=== PATIENT | male | born 1930 | race Caucasian/White ===

== ENCOUNTER 2016-09-22 09:54 | Day surgery (SDC) | payer MEDICARE ==
[2016-09-22] MEDS ORDERED: LIDOCAINE 2% MDV (20MG/ML) 20ML VIAL IV ONE (14:00)
[2016-09-22] MEDS ORDERED: PROPOFOL 10 MG/ML VIAL IV ONE (14:00)
--- NOTE | 2016-09-26 16:02 | Operative Note ---
DATE OF SURGERY: 09/22/2016. REFERRING PHYSICIAN: Julio Cesar Camacho M.D. PROCEDURE: Colonoscopy to the cecum and terminal ileum with multiple biopsies. INDICATION: A history of Crohn's ileitis. The patient returns at this time for surveillance. Clinically he is doing fairly well with Pentasa only. ANESTHESIA: Intravenous sedation was administered by the Department of Anesthesiology and included Diprivan titrated to effect. PROCEDURE: Following informed consent from this alert individual, including a discussion of the risks and benefits of the procedure and an opportunity for the patient to ask questions, the patient was in the left lateral decubitus position. A digital rectal examination was performed. There was mild stenosis noted. No masses were palpable. Following this, the Olympus PCF-180 video colonoscope was inserted into the rectum without resistance. The rectal mucosa had a normal appearance with normal folds and distensibility. The colonoscope was advanced up through the bowel to the level of the cecum without much difficulty. Throughout the bowel, the mucosa appeared normal, folds were normal , and the bowel was fairly distensible. The colon preparation was good. The cecum was defined by noting the appendiceal orifice and ileocecal valve. The terminal ileum was then cannulated and demonstrated inflammatory changes with edema, erythema, and superficial erosions but no stricturing. Biopsies were taken from the terminal ileum. The ileum was cannulated for approximately 15 cm. From this point the colonoscope was then withdrawn back into the colon. Withdrawal through the colon failed to demonstrate any mucosal changes. There was sigmoid diverticulosis noted. No other pathology was appreciated. Retroflexion in the rectum failed to demonstrate any changes. The endoscope was straightened and withdrawn. The patient tolerated the procedure well and was returned to the recovery area in stable condition. IMPRESSION: 1. Mild inflammatory change in the ileum compatible with mild Crohn's ileitis. There was no stricturing noted. There were erosions and edema with erythema. 2. Sigmoid diverticulosis. RECOMMENDATIONS: The patient was advised to continue on his current medical regimen. Further recommendations may be forthcoming pending the results of the biopsies obtained today. Follow up also will be with Dr. Julio Cesar Camacho. ISHAN ORTA D.O. Date Time JOB NUMBER: [id number] cc: Simón Henao
== END 2016-09-22 12:08 | disposition home or self-care (01) ==
LOC: HOP 09:54
PROVIDERS: ATTEND Internal Medicine Gastroenterology
DX: Z09 Encounter for follow-up examination after completed treatment for conditions other than malignant neoplasm (principal); Z87.19 Personal history of other diseases of the digestive system; K50.10 Crohn's disease of large intestine without complications; K57.30 Diverticulosis of large intestine without perforation or abscess without bleeding

== ENCOUNTER 2016-11-23 09:53 | Inpatient (IN) | payer MEDICARE ==
[2016-11-23] MEDS ORDERED: PROMETHAZINE HCL 25 MG/ML VIAL IV ONE (10:58)
[2016-11-23] MEDS ORDERED: HYDROMORPHONE HCL 1 MG/ML CPJ IVP ONE (11:02)
[2016-11-23 11:14] LABS: BASO % 0.4 % (0-6); EOS % 2.3 % (0-6); GRAN % 68.4 % (47-80); HEMATOCRIT 35.7 % (42.0-52.0); HEMOGLOBIN 11.8 gm/dl (14.0-18.0); LYMPH % 18.2 % (16-45); MEAN CELL VOLUME 98.6 fl (81-97); MEAN CORPUSCULAR HGB CONC 33.1 g/dl (32-36); MEAN PLATELET VOLUME 10.7 fl (7.4-10.4); MONO % 10.7 % (0-9); PLATELET COUNT 180 K/uL (130-400); RED BLOOD COUNT 3.62 M/uL (4.40-5.70); RED CELL DISTRIBUTION WIDTH 13.6 % (11.5-14.5); WHITE BLOOD COUNT W/O DIFF 4.9 K/uL (4.2-12.2)
[2016-11-23 11:17] LABS: MEAN CORPUSCULAR HEMOGLOBIN 32.5 pg (27-33)
[2016-11-23 11:24] LABS: ANION GAP 9.9 (7-16); CARBON DIOXIDE 23.1 mmol/L (22-30); CREATININE 1.3 mg/dL (0.66-1.25)
[2016-11-23] MEDS ORDERED: CIPROFLOXACIN LACTATE/D5W 400 MG in DEXTROSE 1 BAG IVPB ONE (13:01)
[2016-11-23 13:31] LABS: URINE APPEARANCE CLEAR; URINE BILIRUBIN NEGATIVE (NEGATIVE); URINE BLOOD NEGATIVE (NEGATIVE); URINE COLOR YELLOW; URINE GLUCOSE (UA) NEGATIVE (NEGATIVE); URINE KETONE NEGATIVE (NEGATIVE); URINE LEUKOCYTE ESTERASE NEGATIVE (NEGATIVE); URINE NITRITE NEGATIVE (NEGATIVE); URINE PROTEIN NEGATIVE (NEGATIVE); URINE UROBILINOGEN 0.2 E.U./dL (0.20 - 1.00)
[2016-11-23] MEDS ORDERED: METRONIDAZOLE IVPB 500 MG in SODIUM CHLORIDE 1 BAG IVPB ONE (14:05)
--- NOTE | 2016-11-23 14:12 | Emergency Department Record ---
History of Present Illness - General Chief Complaint: Abdominal Pain Stated Complaint: ABD PAIN Time Seen by Provider: 11/23/16 10:43 Source: Patient Mode of Arrival: Ambulatory Limitations: No limitations - History of Present Illness Initial Comments: pt came in c/o of severe abd pain in lower abdomen he was worried it might be appendicitis. it is worse w walking. Complaint: Abdominal pain Onset/Timin -: Days(s) Location: RLQ Radiation: None Migration to: No migration Severity: Moderate Quality: Sharp Consistency: Constant Improves With: Nothing Worsens With: Nothing Associated Symptoms: Nausea, Vomiting - Related Data Home Medications Medication Instructions Recorded Confirmed Last Taken Albuterol Sulfate [Proair 90 mcg IH Q4H 11/23/16 11/23/16 Unknown Respiclick] Aspirin [Aspir-Low] 81 mg PO DAILY 11/23/16 11/23/16 11/23/16 Atorvastatin Calcium 40 mg PO QHS 11/23/16 11/23/16 11/22/16 Budesonide [Entocort EC] 30 mg PO DAILY 11/23/16 11/23/16 11/23/16 Bumetanide [Bumex] 1 mg PO DAILY 11/23/16 11/23/16 11/23/16 Cholecalciferol (Vitamin D3) 2,000 unit PO DAILY 11/23/16 11/23/16 11/23/16 [Vitamin D3] Clopidogrel Bisulfate [Plavix] 75 mg PO DAILY 11/23/16 11/23/16 11/23/16 Dextran 70/Hypromellose 1 each OP DAILY 11/23/16 11/23/16 11/23/16 [Artificial Tears] Ezetimibe [Zetia] 10 mg PO QHS 11/23/16 11/23/16 11/22/16 Ferrous Sulfate [Iron] 325 mg PO BID 11/23/16 11/23/16 11/23/16 Fluticasone Propionate [Flovent 50 mcg IH DAILY 11/23/16 11/23/16 11/23/16 Diskus] Glucosamine HCl 1,500 mg PO TID 11/23/16 11/23/16 11/23/16 Hydralazine HCl [Apresoline] 25 mg PO BID 11/23/16 11/23/16 11/23/16 Isosorbide Mononitrate [Imdur] 30 mg PO DAILY 11/23/16 11/23/16 11/23/16 L.acidoph & Paracasei,B.lactis 1 each PO DAILY 11/23/16 11/23/16 11/23/16 [Probiotic] Loperamide HCl [Immodium] 1 mg PO ASDIR 11/23/16 11/23/16 Unknown Mesalamine [Pentasa] 1,500 mg PO BID 11/23/16 11/23/16 11/23/16 Metoprolol Succinate 100 mg PO DAILY 11/23/16 11/23/16 11/23/16 Multivitamin [Daily Multiple 1 each PO DAILY 11/23/16 11/23/16 11/23/16 Vitamin] Nitroglycerin [Nitrostat] 0.4 mg SL ASDIR 11/23/16 11/23/16 Unknown Ranitidine HCl [Zantac] 150 mg PO DAILY 11/23/16 11/23/16 11/23/16 Tramadol HCl 100 mg PO TID 11/23/16 11/23/16 Unknown Umeclidinium Brm/Vilanterol Tr 1 each IH DAILY 11/23/16 11/23/16 11/23/16 [Anoro Ellipta 62.5-25 Mcg INH] Allergies Allergy/AdvReac Type Severity Reaction Status Date / Time morphine AdvReac Severe hallucinati Verified 11/23/16 14:42 ons Travel Screening - Travel/Exposure Within Last 30 Days Have you traveled within the last 30 days?: No Review of Systems Reviewed: No additional complaints except as noted below Constitutional: Reports: As per HPI. Denies: Chills, Fever, Malaise, Night sweats, Weakness, Weight change Eyes: Reports: As per HPI. Denies: Eye discharge, Eye pain, Photophobia, Vision change ENT: Reports: As per HPI. Denies: Congestion, Dental pain, Ear pain, Epistaxis , Hearing loss, Throat pain Respiratory: Reports: As per HPI. Denies: Cough, Dyspnea, Hemoptysis, Stridor, Wheezes Cardiovascular: Reports: As per HPI. Denies: Arrhythmia, Chest pain, Dyspnea on exertion, Edema, Murmurs, Orthopnea, Palpitations, Paroxysmal nocturnal dyspnea, Rheumatic Fever, Syncope Endocrine: Reports: As per HPI. Denies: Fatigue, Heat or cold intolerance, Polydipsia, Polyuria Gastrointestinal: Reports: As per HPI. Denies: Abdominal pain, Constipation, Diarrhea, Hematemesis, Hematochezia, Melena, Nausea, Vomiting Genitourinary: Reports: As per HPI. Denies: Dysuria, Frequency, Hematuria, Incontinence, Retention, Testicular pain, Testicular mass, Urgency Musculoskeletal: Reports: As per HPI. Denies: Arthralgia, Back pain, Gout, Joint swelling, Myalgia, Neck pain Skin: Reports: As per HPI. Denies: Bruising, Change in color, Change in hair/ nails, Lesions, Pruritus, Rash Neurological: Reports: As per HPI. Denies: Abnormal gait, Confusion, Headache, Numbness, Paresthesias, Seizure, Tingling, Tremors, Vertigo, Weakness Psychiatric: Reports: As per HPI. Denies: Anxiety, Auditory hallucinations, Depression, Homicidal thoughts, Suicidal thoughts, Visual hallucinations Hematological/Lymphatic: Reports: As per HPI. Denies: Anemia, Blood Clots, Easy bleeding, Easy bruising, Swollen glands Past Medical History - SOCIAL HISTORY Smoking Status: Former smoker Alcohol Use Comment: 2 glasses wine/night Drug Use: None - RESPIRATORY Hx Respiratory Disorders: Yes Hx COPD: Yes - CARDIOVASCULAR Hx Cardio Disorders: Yes Hx Cardiac Cath: Yes Hx Chest Pain: No Hx Heart Attack: Yes (x 3-last one 2010) Hx Hypertension: Yes Hx Palpitations: No Hx Vascular Disease: Yes Hx Coronary Artery Bypass Graft: Yes Hx Coronary Stent: Yes Comment:: d/t breathing - NEURO Hx Neuro Disorders: No - GI Hx GI Disorders: Yes Hx Crohn's Disease: Yes Hx Reflux: Yes Hx of Polyps: Yes Comment:: hernia - Hx Genitourinary Disorders: Yes Hx Prostate Problems: Yes (hx of prostate cancer) - ENDOCRINE Hx Endocrine Disorders: No - MUSCULOSKELETAL Hx Musculoskeletal Disorders: Yes Hx Arthritis: Yes - PSYCH Hx Psych Problems: No - HEMATOLOGY/ONCOLOGY Hx Hematology/Oncology Disorders: Yes Hx Anemia: Yes Hx Cancer: Yes (prostate cancer) Hx Chemotherapy: No Hx Radiation Therapy: No Hx Blood Transfusions: Yes Hx Blood Transfusion Reaction: No Family Medical History Any Significant Family History?: Yes Hx Heart Disease: Father Physical Exam - General General Appearance: Alert, Oriented x3, Cooperative, Mild distress - Head Head exam: Normal inspection - Eye Eye exam: Normal appearance, PERRL, EOMI Pupils: Normal accommodation - ENT ENT exam: Normal exam, Mucous membranes moist, Normal external ear exam, Normal orophraynx Ear exam: Normal external inspection. negative: External canal tenderness Nasal Exam: Normal inspection. negative: Discharge, Sinus tenderness Mouth exam: Normal external inspection, Tongue normal Teeth exam: Normal inspection. negative: Dental caries Throat exam: Normal inspection. negative: Tonsillar erythema, Tonsillar exudate - Neck Neck exam: Normal inspection, Full ROM. negative: Tenderness - Respiratory Respiratory exam: Normal lung sounds bilaterally. negative: Respiratory distress - Cardiovascular Cardiovascular Exam: Regular rate, Normal rhythm, Normal heart sounds - GI/Abdominal GI/Abdominal exam: Soft, Normal bowel sounds, Guarding, Tenderness (rlq and llq) - Rectal Rectal exam: Deferred - exam: Deferred - Extremities Extremities exam: Normal inspection, Full ROM, Normal capillary refill. negative: Tenderness - Back Back exam: Reports: Normal inspection, Full ROM. Denies: Muscle spasm, Rash noted, Tenderness - Neurological Neurological exam: Alert, CN II-XII intact, Normal gait, Oriented X3 - Psychiatric Psychiatric exam: Normal affect, Normal mood - Skin Skin exam: Dry, Intact, Normal color, Warm Course Vital Signs 11/23/16 11/23/16 11/23/16 10:37 11:09 11:10 Temperature 97.8 F Pulse Rate 68 Pulse Rate [ 69 58 L Pulse Ox Probe] Respiratory 18 Rate Blood Pressure 154/56 Blood Pressure 101/67 [Left Arm] Blood Pressure 140/80 [Right Arm] Pulse Ox 95 11/23/16 11/23/16 12:16 13:44 Temperature 97.9 F Pulse Rate Pulse Rate [ 52 L 54 L Pulse Ox Probe] Respiratory 18 18 Rate Blood Pressure Blood Pressure [Left Arm] Blood Pressure 131/49 160/62 [Right Arm] Pulse Ox 96 96 Medical Decision Making - Management Options MDM Management: Additional Work-up Planned (e.g. ADM/Transfer/OP Study) - Data Complexity MDM Data: Labs Ordered and/or Reviewed, X-Ray Ordered and/or Reviewed - Lab Data Result diagrams: 11/23/16 11:08 11/23/16 11:08 Lab Results 11/23/16 11/23/16 11/23/16 Range/Units 11:08 11:08 12:07 WBC 4.9 (4.2-12.2) K/uL RBC 3.62 L (4.40-5.70) M/uL Hgb 11.8 L (14.0-18.0) gm/dl Hct 35.7 L (42.0-52.0) % MCV 98.6 H (81-97) fl MCH 32.5 (27-33) pg MCHC 33.1 (32-36) g/dl RDW 13.6 (11.5-14.5) % Plt Count 180 (130-400) K/uL MPV 10.7 H (7.4-10.4) fl Gran % 68.4 (47-80) % Lymphocytes % 18.2 (16-45) % Monocytes % 10.7 H (0-9) % Eosinophils % 2.3 (0-6) % Basophils % 0.4 (0-6) % Sodium 138 (136-145) mmol/L Potassium 4.4 (3.5-5.1) mmol/L Chloride 105 (98-107) mmol/L Carbon Dioxide 23.1 (22-30) mmol/L Anion Gap 9.9 (7-16) BUN 21 H (9-20) mg/dL Creatinine 1.3 H (0.66-1.25) mg/dL Estimated GFR 56 ml/min Random Glucose 140 H (70-110) mg/dL Lactic Acid 1.1 (0.7-2.1) mmol/L Calcium 8.9 (8.5-10.1) mg/dL Urine Color Urine Appearance Urine pH (5.0-8.0) Ur Specific [place] (1.002-1.030) Urine Protein (NEGATIVE) Urine Glucose (UA) (NEGATIVE) Urine Ketones (NEGATIVE) Urine Blood (NEGATIVE) Urine Nitrite (NEGATIVE) Urine Bilirubin (NEGATIVE) Urine Urobilinogen (0.20 - 1.00) E.U./dL Ur Leukocyte Esterase (NEGATIVE) 11/23/16 Range/Units 13:00 WBC (4.2-12.2) K/uL RBC (4.40-5.70) M/uL Hgb (14.0-18.0) gm/dl Hct (42.0-52.0) % MCV (81-97) fl MCH (27-33) pg MCHC (32-36) g/dl RDW (11.5-14.5) % Plt Count (130-400) K/uL MPV (7.4-10.4) fl Gran % (47-80) % Lymphocytes % (16-45) % Monocytes % (0-9) % Eosinophils % (0-6) % Basophils % (0-6) % Sodium (136-145) mmol/L Potassium (3.5-5.1) mmol/L Chloride (98-107) mmol/L Carbon Dioxide (22-30) mmol/L Anion Gap (7-16) BUN (9-20) mg/dL Creatinine (0.66-1.25) mg/dL Estimated GFR ml/min Random Glucose (70-110) mg/dL Lactic Acid (0.7-2.1) mmol/L Calcium (8.5-10.1) mg/dL Urine Color Yellow Urine Appearance Clear Urine pH 5.5 (5.0-8.0) Ur Specific [place] 1.010 (1.002-1.030) Urine Protein Negative (NEGATIVE) Urine Glucose (UA) Negative (NEGATIVE) Urine Ketones Negative (NEGATIVE) Urine Blood Negative (NEGATIVE) Urine Nitrite Negative (NEGATIVE) Urine Bilirubin Negative (NEGATIVE) Urine Urobilinogen 0.2 (0.20 - 1.00) E.U./dL Ur Leukocyte Esterase Negative (NEGATIVE) - Radiology Data Radiology results: Report reviewed, Image reviewed Disposition Disposition: Admit Clinical Impression: Diverticulitis Qualifiers: Diverticulitis site: large intestine Diverticulitis bleeding: without bleeding Diverticulitis complication: without perforation or abscess Qualified Code(s): K57.32 - Diverticulitis of large intestine without perforation or abscess without bleeding Disposition: Still a Patient at [facility] Decision to Admit: Admit from ER Decision to Admit Date: 11/23/16 Decision to Admit Time: 14:30 Forms: Patient Portal Access
[2016-11-23] MEDS ORDERED: HYDROMORPHONE HCL 1 MG/ML CPJ IVP PRN (15:19)
[2016-11-23] MEDS ORDERED: ONDANSETRON HCL IV 4 MG/2 ML VIAL IVP PRN (15:19)
[2016-11-23] MEDS ORDERED: NITROGLYCERIN 0.4MG SL TABLET #25 BTL SL PRN (15:19)
[2016-11-23] MEDS ORDERED: ACETAMINOPHEN 500 MG TABLET PO PRN (15:19)
[2016-11-23] MEDS ORDERED: 0.9 % SODIUM CHLORIDE 1000ML 1,000 ML IV PRN (15:19)
[2016-11-23] MEDS ORDERED: ALBUTEROL SULFATE 90 MCG IH SCH (15:19)
[2016-11-23] MEDS: CIPROFLOXACIN LACTATE/D5W 400 MG in DEXTROSE 1 BAG IVPB SCH (15:25)
[2016-11-23] MEDS: METRONIDAZOLE IVPB 500 MG in SODIUM CHLORIDE 1 BAG IVPB SCH ×2 (15:25→23:30)
[2016-11-23] MEDS: TRAMADOL HCL 50 MG TABLET PO SCH (16:57)
[2016-11-23] MEDS ORDERED: Non-Formulary MISC (Atorvastatin Calcium [Atorvastatin Calcium] 40 MG) PO SCH (22:00)
[2016-11-23] MEDS ORDERED: MESALAMINE PO SCH (22:00)
[2016-11-23] MEDS ORDERED: EZETIMIBE 10 MG TABLET PO SCH (22:00)
[2016-11-23] MEDS: HYDRALAZINE HCL 25 MG TABLET PO SCH (22:13)
[2016-11-24] MEDS: TRAMADOL HCL 50 MG TABLET PO SCH (02:36)
[2016-11-24] MEDS: CIPROFLOXACIN LACTATE/D5W 400 MG in DEXTROSE 1 BAG IVPB SCH (02:38)
[2016-11-24] MEDS: METRONIDAZOLE IVPB 500 MG in SODIUM CHLORIDE 1 BAG IVPB SCH (06:43)
[2016-11-24 07:00] LABS: BASO % 0.2 % (0-6); EOS % 3.6 % (0-6); GRAN % 56.6 % (47-80); HEMATOCRIT 35.7 % (42.0-52.0); HEMOGLOBIN 11.5 gm/dl (14.0-18.0); LYMPH % 27.6 % (16-45); MEAN CELL VOLUME 99.2 fl (81-97); MEAN CORPUSCULAR HEMOGLOBIN 31.9 pg (27-33); MEAN CORPUSCULAR HGB CONC 32.2 g/dl (32-36); MEAN PLATELET VOLUME 11.1 fl (7.4-10.4); PLATELET COUNT 171 K/uL (130-400); RED CELL DISTRIBUTION WIDTH 13.7 % (11.5-14.5)
--- NOTE | 2016-11-24 08:04 | CT SCAN REPORT ---
EXAM: ABDOMEN AND PELVIS CT WITHOUT CONTRAST HISTORY: ACUTE RIGHT LOWER QUADRANT ABDOMINAL PAIN. TECHNIQUE: Abdomen and pelvis CT without contrast was obtained. Comparison: Abdomen and pelvis CT 09/13/12. FINDINGS: Prosthetic heart valves. Severe coronary artery calcification. The lung bases are clear. Evaluation of the solid abdominal visceral organs is compromised due to lack of IV contrast. The liver and spleen are unremarkable. 1 cm unilocular cyst mid right kidney. 1 cm unilocular cyst mid left kidney. The adrenals and pancreas are unremarkable. Tiny gallstones in the gallbladder which is nondistended. The visualized loops of small and large bowel are of normal caliber. Normal appendix. There is mild colonic diverticulosis. Inflamed diverticulum of tortuous sigmoid colon located in the right lower quadrant best seen on axial image 71 consistent with acute diverticulitis. No abscess or obstruction. Moderate to severe aortoiliac calcification. Abdominal aortic aneurysm excluded by bifurcated stent graft. The aneurysm sac measures up to 3.7 cm in diameter similar to prior study. No ascites or adenopathy. No lytic or blastic lesion. 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 IMPRESSION: 1. ACUTE SIGMOID COLON DIVERTICULITIS. NO ABSCESS OR OBSTRUCTION. 2. SEVERE CORONARY ARTERY CALCIFICATION. 3. BENIGN BOSNIAK TYPE 1 RENAL CYSTS. JOB NUMBER: [id number] [facility]
[2016-11-24] MEDS ORDERED: TRAMADOL HCL 50 MG TABLET PO PRN (09:46)
[2016-11-24] MEDS ORDERED: ALBUTEROL HFA 8 GM INHALER INH PRN (09:46)
[2016-11-24] MEDS ORDERED: RANITIDINE HCL 150 MG TABLET PO SCH (10:00)
[2016-11-24] MEDS ORDERED: FLUTICASONE PROPIONATE 50 MCG IH SCH (10:00)
[2016-11-24] MEDS ORDERED: CLOPIDOGREL 75MG TABLET PO SCH (10:00)
[2016-11-24] MEDS ORDERED: [UNRECOGNIZED DRUG - OTHER] IH SCH (10:00)
[2016-11-24] MEDS ORDERED: ISOSORBIDE MONONITRATE 30 MG TAB.ER.24H PO SCH (10:00)
[2016-11-24] MEDS ORDERED: BUMETANIDE 1 MG TABLET PO SCH (10:00)
[2016-11-24] MEDS ORDERED: ASPIRIN 81 MG TABEC PO SCH (10:00)
[2016-11-24] MEDS ORDERED: METOPROLOL SUCC 50 MG TABLET PO SCH (10:00)
[2016-11-24] MEDS ORDERED: BUDESONIDE PO SCH (10:00)
[2016-11-24] MEDS ORDERED: MESALAMINE 500 MG CAPSULE.SA PO SCH (10:00)
--- NOTE | 2016-11-24 10:59 | History & Physical ---
History of Present Illness - Date of Service Date of Service for History & Physical: 11/24/16 - History of Present Illness Admitting Diagnosis: diverticulitis History of Present Illness: 86 yo M presented to ED yesterday with c/o of severe abd pain in lower abdomen he was worried it might be appendicitis. it is worse with walking. These symptoms were different from his typical crohns symptoms which are controlled with mesalamine. SHe sees Dr. Gay for GI. Past medical : COPD, heart attack x 3, cardiac cath, CAD, Crohn's disease, GERD , prostate cacner, arthritis, anemia, former smoker (quit 2005) Past Surgical : aortic valve replacement, back surgery x 3, CAGB x 4, right shoulder, bilateral catarats, prostatectomy, PCP: Julio Cesar Rodriguez Travel Screening - Travel/Exposure Within Last 30 Days Have you traveled within the last 30 days?: No - Travel/Exposure Within Last Year Have you traveled outside the [place] in the last year?: No - Additonal Travel Details Have you been exposed to anyone with a communicable illness?: No Review of Systems Constitutional: Reports: As per HPI. Denies: Chills, Fever, Malaise, Night sweats, Weakness, Weight change Eyes: Reports: As per HPI. Denies: Eye discharge, Eye pain, Photophobia, Vision change ENT: Reports: As per HPI. Denies: Congestion, Dental pain, Ear pain, Epistaxis , Hearing loss, Throat pain Respiratory: Reports: As per HPI. Denies: Cough, Dyspnea, Hemoptysis, Stridor, Wheezes Cardiovascular: Reports: As per HPI. Denies: Arrhythmia, Chest pain, Dyspnea on exertion, Edema, Murmurs, Orthopnea, Palpitations, Paroxysmal nocturnal dyspnea, Rheumatic Fever, Syncope Endocrine: Reports: As per HPI. Denies: Fatigue, Heat or cold intolerance, Polydipsia, Polyuria Gastrointestinal: Reports: As per HPI. Denies: Abdominal pain, Constipation, Diarrhea, Hematemesis, Hematochezia, Melena, Nausea, Vomiting Genitourinary: Reports: As per HPI. Denies: Dysuria, Frequency, Hematuria, Incontinence, Retention, Testicular pain, Testicular mass, Urgency Musculoskeletal: Reports: As per HPI. Denies: Arthralgia, Back pain, Gout, Joint swelling, Myalgia, Neck pain Skin: Reports: As per HPI. Denies: Bruising, Change in color, Change in hair/ nails, Lesions, Pruritus, Rash Neurological: Reports: As per HPI. Denies: Abnormal gait, Confusion, Headache, Numbness, Paresthesias, Seizure, Tingling, Tremors, Vertigo, Weakness Psychiatric: Reports: As per HPI. Denies: Anxiety, Auditory hallucinations, Depression, Homicidal thoughts, Suicidal thoughts, Visual hallucinations Hematological/Lymphatic: Reports: As per HPI. Denies: Anemia, Blood Clots, Easy bleeding, Easy bruising, Swollen glands Past Medical History - SOCIAL HISTORY Smoking Status: Former smoker Alcohol Use Comment: 2 glasses wine/night Drug Use: None - RESPIRATORY Hx Respiratory Disorders: Yes Hx COPD: Yes - CARDIOVASCULAR Hx Cardio Disorders: Yes Hx Cardiac Cath: Yes Hx Heart Attack: Yes (x 3-last one 2010) Hx Hypertension: Yes Hx Vascular Disease: Yes Hx Coronary Artery Bypass Graft: Yes Hx Coronary Stent: Yes Comment:: d/t breathing - NEURO Hx Neuro Disorders: No - GI Hx GI Disorders: Yes Hx Crohn's Disease: Yes Hx Reflux: Yes Hx of Polyps: Yes Comment:: hernia - Hx Genitourinary Disorders: Yes Hx Prostate Problems: Yes (hx of prostate cancer) - ENDOCRINE Hx Endocrine Disorders: No - MUSCULOSKELETAL Hx Musculoskeletal Disorders: Yes Hx Arthritis: Yes (all over) - PSYCH Hx Psych Problems: No - HEMATOLOGY/ONCOLOGY Hx Hematology/Oncology Disorders: Yes Hx Anemia: Yes Hx Cancer: Yes (prostate cancer) Hx Chemotherapy: No Hx Radiation Therapy: No Hx Blood Transfusions: Yes (>10 years ago) Hx Blood Transfusion Reaction: No Family Medical History Any Significant Family History?: Yes Hx Cancer: Brother/Sister Hx Heart Disease: Father H&P Meds/Allergies - Allergies Allergies: Allergies Allergy/AdvReac Type Severity Reaction Status Date / Time morphine AdvReac Severe hallucinati Verified 11/23/16 14:42 ons - Home Medications Home Medications Medication Instructions Recorded Confirmed Last Taken Albuterol Sulfate [Proair 90 mcg IH Q4H PRN 11/23/16 11/23/16 Unknown Respiclick] Aspirin [Aspir-Low] 81 mg PO DAILY 11/23/16 11/23/16 11/23/16 Atorvastatin Calcium 40 mg PO QHS 11/23/16 11/23/16 11/22/16 Bumetanide [Bumex] 1 mg PO Q48H 11/23/16 11/24/16 11/23/16 Cholecalciferol (Vitamin D3) 2,000 unit PO DAILY 11/23/16 11/23/16 11/23/16 [Vitamin D3] Clopidogrel Bisulfate [Plavix] 75 mg PO DAILY 11/23/16 11/23/16 11/23/16 Dextran 70/Hypromellose 1 each OP DAILY 11/23/16 11/23/16 11/23/16 [Artificial Tears] Ezetimibe [Zetia] 10 mg PO QHS 11/23/16 11/23/16 11/22/16 Ferrous Sulfate [Iron] 325 mg PO BID 11/23/16 11/23/16 11/23/16 Glucosamine HCl 1,500 mg PO TID 11/23/16 11/23/16 11/23/16 Hydralazine HCl [Apresoline] 25 mg PO BID 11/23/16 11/23/16 11/23/16 Isosorbide Mononitrate [Imdur] 30 mg PO DAILY 11/23/16 11/23/16 11/23/16 L.acidoph & Paracasei,B.lactis 1 each PO DAILY 11/23/16 11/23/16 11/23/16 [Probiotic] Loperamide HCl [Immodium] 1 mg PO ASDIR 11/23/16 11/23/16 Unknown Mesalamine [Pentasa] 1,500 mg PO BID 11/23/16 11/23/16 11/23/16 Metoprolol Succinate 100 mg PO DAILY 11/23/16 11/23/16 11/23/16 Multivitamin [Daily Multiple 1 each PO DAILY 11/23/16 11/23/16 11/23/16 Vitamin] Nitroglycerin [Nitrostat] 0.4 mg SL Q5MIN PRN 11/23/16 11/24/16 Unknown Tramadol HCl 100 mg PO TID PRN 11/23/16 11/23/16 Unknown Umeclidinium Brm/Vilanterol Tr 1 each IH DAILY 11/23/16 11/23/16 11/23/16 [Anoro Ellipta 62.5-25 Mcg INH] - Active Medications Active Medications: Current Medications Acetaminophen (Tylenol 500mg Tab) 1,000 mg PO Q6H PRN PRN Reason: PAIN/TEMP Albuterol Sulfate (Ventolin Hfa) 2 puff INH Q4H PRN PRN Reason: SHORTNESS OF BREATH Aspirin (Ecotrin (Ec)) 81 mg PO DAILY [facility] Atorvastatin Calcium (Lipitor) 40 mg PO QHS [facility] Bumetanide (Bumex) 1 mg PO Q48H [facility] Clopidogrel Bisulfate (Plavix) 75 mg PO DAILY [facility] Ezetimibe (Zetia) 10 mg PO QHS [facility] Last Admin: 11/23/16 22:47 Dose: Not Given Hydralazine HCl (Apresoline) 25 mg PO BID [facility] Last Admin: 11/23/16 22:13 Dose: 25 mg Hydromorphone HCl (Dilaudid) 0.5 mg IVP Q4H PRN PRN Reason: Abdominal Pain Sodium Chloride () 1,000 mls @ 125 mls/hr IV .Q8H PRN PRN Reason: LARGE VOLUME IV Last Admin: 11/23/16 17:00 Dose: 125 mls/hr Ciprofloxacin Lactate 400 mg/ (Glucose) 200 mls @ 200 mls/hr IVPB Q12H [facility] Stop: 11/29/16 14:01 Metronidazole/Sodium Chloride (500 mg/ Sodium Chloride) 100 mls @ 100 mls/hr IVPB Q8H [facility] Stop: 11/29/16 15:01 Isosorbide Mononitrate (Imdur) 30 mg PO DAILY [facility] Mesalamine (Pentasa) 1,500 mg PO BID [facility] Metoprolol Succinate (Toprol Xl) 100 mg PO DAILY [facility] Nitroglycerin (Nitrostat 0.4mg) 0.4 mg SL Q5MIN PRN PRN Reason: CHEST PAIN Non-Formulary Medication (Umeclidinium Brm/Vilanterol Tr [Anoro Ellipta 62.5-25 Mcg Inh]) 1 each IH DAILY [facility] Ondansetron HCl (Zofran) 4 mg IVP Q4H PRN PRN Reason: NAUSEA Tramadol HCl (Ultram) 50 mg PO TID PRN PRN Reason: Pain - General Physical Exam - Vital Signs Vital Signs: Vital Signs - Last 24 Hrs Temp Pulse Resp BP Pulse Ox 11/24/16 10:00 97.6 F 54 L 16 158/58 96 11/24/16 05:01 98.6 F 52 L 16 104/50 96 04/03/17 02:00 98.5 F 63 18 100/56 96 11/23/16 22:50 18 11/23/16 21:42 98.6 F 52 L 18 118/65 94 L 11/23/16 15:30 98.0 F 54 L 18 185/68 98 - General General Appearance: Alert, Oriented x3, Cooperative, Mild distress Limitations: No limitations - Head Head exam: Normal inspection - Eye Eye exam: Normal appearance, PERRL, EOMI Pupils: Normal accommodation - ENT ENT exam: Normal exam, Mucous membranes moist, Normal external ear exam, Normal orophraynx Ear exam: Normal external inspection. negative: External canal tenderness Nasal Exam: Normal inspection. negative: Discharge, Sinus tenderness Mouth exam: Normal external inspection, Tongue normal Teeth exam: Normal inspection. negative: Dental caries Throat exam: Normal inspection. negative: Tonsillar erythema, Tonsillar exudate - Neck Neck exam: Normal inspection, Full ROM. negative: Tenderness - Respiratory Respiratory exam: Normal lung sounds bilaterally. negative: Respiratory distress - Cardiovascular Cardiovascular Exam: Regular rate, Normal rhythm, Normal heart sounds - GI/Abdominal GI/Abdominal exam: Soft, Normal bowel sounds, Guarding - Rectal Rectal exam: Deferred - exam: Deferred - Extremities Extremities exam: Normal inspection, Full ROM, Normal capillary refill. negative: Tenderness - Back Back exam: Reports: Normal inspection, Full ROM. Denies: Muscle spasm, Rash noted, Tenderness - Neurological Neurological exam: Alert, CN II-XII intact, Normal gait, Oriented X3 - Psychiatric Psychiatric exam: Normal affect, Normal mood - Skin Skin exam: Dry, Intact, Normal color, Warm Results - Labs Result Diagrams: 11/24/16 06:00 11/23/16 11:08 Labs Last 24 Hours: Laboratory Results - last 24 hr 11/24/16 06:00 WBC 5.0 RBC 3.60 L Hgb 11.5 L Hct 35.7 L MCV 99.2 H MCH 31.9 MCHC 32.2 RDW 13.7 Plt Count 171 MPV 11.1 H Gran % 56.6 Lymphocytes % 27.6 Monocytes % 12.0 H Eosinophils % 3.6 Basophils % 0.2 VTE H&P Assessment - Risk for VTE Risk for VTE: Yes Risk Level: Moderate Risk Assessment Date: 11/24/16 Risk Assessment Time: 11:12 VTE Orders Placed or Will Be Placed: No VTE Reason for No Prophylaxis: Not Indicated Plan - Inpatient Certification Inpatient Certification: Admit to inpatient care: Based on my medical assessment, after consideration of patient's risk factors (age, co-morbidities and patient presenting symptoms and acuity), I expect that this patient will remain in the hospital greater than or equal to two midnights and that the services needed warrant inpatient care because: Patient Risk Factors: [] Estimated length of stay: [1] The patient may reasonably be expected to be discharged or transferred to a hospital within 96 hours after admission to [facility]. Services needed: [] Post hospital care (if known): [] I certify that my determination is in accordance with my understanding of Medicare requirements for reasonable and necessary inpatient services. 11/24/16 11:11 - Detailed Diagnosis and Plan (1) Diverticulitis Current Visit: Yes Status: Acute Qualifiers: Diverticulitis site: large intestine Diverticulitis bleeding: without bleeding Diverticulitis complication: without perforation or abscess Qualified Code(s): K57.32 - Diverticulitis of large intestine without perforation or abscess without bleeding Base Code: K57.92 - DVTRCLI OF INTEST, PART UNSP, W/O PERF OR ABSCESS W/O BLEED Comment: /- patient clinically improving on cipro and flagyl. Will transition to oral and have patient follow up with his PCP and Dr. Gay. No nausea or diarrhea since yesterday. eating and walking well.
[2016-11-24] MEDS: HYDRALAZINE HCL 25 MG TABLET PO SCH (11:00)
--- NOTE | 2016-11-24 11:17 | Discharge Summary ---
Providers Discharge Summary Date: 11/24/16 Date of admission: 11/23/16 15:11 Expected Date of Discharge: 11/24/16 Attending physician: MECHE ZUÑIGA Primary care physician: DIMAS MORENO M.D. Physical Exam - Vital Signs Vital Signs: Vital Signs - Last 24 Hrs Temp Pulse Resp BP Pulse Ox 11/24/16 10:00 97.6 F 54 L 16 158/58 96 11/24/16 05:01 98.6 F 52 L 16 104/50 96 11/24/16 02:00 98.5 F 63 18 100/56 96 11/23/16 22:50 18 11/23/16 21:42 98.6 F 52 L 18 118/65 94 L 11/23/16 15:30 98.0 F 54 L 18 185/68 98 - General General Appearance: Alert, Oriented x3, Cooperative, Mild distress Limitations: No limitations - Head Head exam: Normal inspection - Eye Eye exam: Normal appearance, PERRL, EOMI Pupils: Normal accommodation - ENT ENT exam: Normal exam, Mucous membranes moist, Normal external ear exam, Normal orophraynx Ear exam: Normal external inspection. negative: External canal tenderness Nasal Exam: Normal inspection. negative: Discharge, Sinus tenderness Mouth exam: Normal external inspection, Tongue normal Teeth exam: Normal inspection. negative: Dental caries Throat exam: Normal inspection. negative: Tonsillar erythema, Tonsillar exudate - Neck Neck exam: Normal inspection, Full ROM. negative: Tenderness - Respiratory Respiratory exam: Normal lung sounds bilaterally. negative: Respiratory distress - Cardiovascular Cardiovascular Exam: Regular rate, Normal rhythm, Normal heart sounds - GI/Abdominal GI/Abdominal exam: Soft, Normal bowel sounds, Guarding - Rectal Rectal exam: Deferred - exam: Deferred - Extremities Extremities exam: Normal inspection, Full ROM, Normal capillary refill. negative: Tenderness - Back Back exam: Reports: Normal inspection, Full ROM. Denies: Muscle spasm, Rash noted, Tenderness - Neurological Neurological exam: Alert, CN II-XII intact, Normal gait, Oriented X3 - Psychiatric Psychiatric exam: Normal affect, Normal mood - Skin Skin exam: Dry, Intact, Normal color, Warm Hospitalization - Hospitalization Admission Diagnosis: diverticulitis - Problem List/Discharge Diagnosis (1) Diverticulitis Current Visit: Yes Status: Acute Discharge Diagnosis: Diverticulitis site: large intestine Diverticulitis bleeding: without bleeding Diverticulitis complication: without perforation or abscess Qualified Code(s): K57.32 - Diverticulitis of large intestine without perforation or abscess without bleeding Base Code: K57.92 - DVTRCLI OF INTEST, PART UNSP, W/O PERF OR ABSCESS W/O BLEED Comment: 11/24- patient clinically improving on cipro and flagyl. Will transition to oral for 14 days and have patient follow up with his PCP and Dr. Gya. No nausea or diarrhea since yesterday. eating and walking well. - Hospitalization Course Disposition: Home, Self-Care Abnormal Labs: Abnormal Lab Results 11/24/16 Range/Units 06:00 RBC 3.60 L (4.40-5.70) M/uL Hgb 11.5 L (14.0-18.0) gm/dl Hct 35.7 L (42.0-52.0) % MCV 99.2 H (81-97) fl MPV 11.1 H (7.4-10.4) fl Monocytes % 12.0 H (0-9) % Condition at Discharge: (2) Stable Discharge Medications - Discharge Medications Prescriptions: Metronidazole [Flagyl] 500 mg PO Q8HR #42 tablet Ciprofloxacin HCl [Cipro] 500 mg PO Q12HR #30 tablet Tramadol HCl [Ultram] 50 mg PO TID PRN #20 tablet PRN Reason: Pain - General Home Medications: Ambulatory Orders Albuterol Sulfate [Proair Respiclick] 90 mcg IH Q4H PRN 11/23/16 [Last Taken Unknown] Aspirin [Aspir-Low] 81 mg PO DAILY 11/23/16 [Last Taken 11/23/16] Atorvastatin Calcium 40 mg PO QHS 11/23/16 [Last Taken 11/22/16] Bumetanide [Bumex] 1 mg PO Q48H 11/23/16 [Last Taken 11/23/16] Cholecalciferol (Vitamin D3) [Vitamin D3] 2,000 unit PO DAILY 11/23/16 [Last Taken 11/23/16] Clopidogrel Bisulfate [Plavix] 75 mg PO DAILY 11/23/16 [Last Taken 11/23/16] Dextran 70/Hypromellose [Artificial Tears] 1 each OP DAILY 11/23/16 [Last Taken 11/23/16] Ezetimibe [Zetia] 10 mg PO QHS 11/23/16 [Last Taken 11/22/16] Ferrous Sulfate [Iron] 325 mg PO BID 11/23/16 [Last Taken 11/23/16] Glucosamine HCl 1,500 mg PO TID 11/23/16 [Last Taken 11/23/16] Hydralazine HCl [Apresoline] 25 mg PO BID 11/23/16 [Last Taken 11/23/16] Isosorbide Mononitrate [Imdur] 30 mg PO DAILY 11/23/16 [Last Taken 11/23/16] L.acidoph & Paracasei,B.lactis [Probiotic] 1 each PO DAILY 11/23/16 [Last Taken 11/23/16] Loperamide HCl [Immodium] 1 mg PO ASDIR 11/23/16 [Last Taken Unknown] Mesalamine [Pentasa] 1,500 mg PO BID 11/23/16 [Last Taken 11/23/16] Metoprolol Succinate 100 mg PO DAILY 11/23/16 [Last Taken 11/23/16] Multivitamin [Daily Multiple Vitamin] 1 each PO DAILY 11/23/16 [Last Taken 11/23] Nitroglycerin [Nitrostat] 0.4 mg SL Q5MIN PRN 11/23/16 [Last Taken Unknown] Tramadol HCl 100 mg PO TID PRN 11/23/16 [Last Taken Unknown] Umeclidinium Brm/Vilanterol Tr [Anoro Ellipta 62.5-25 Mcg INH] 1 each IH DAILY 11/23/16 [Last Taken 11/23/16] Acetaminophen [Tylenol 500Mg Tab] 1,000 mg PO Q8HR PRN #120 tablet 11/24/16 [ Last Taken Unknown] Albuterol Sulfate [Ventolin Hfa] 2 puff INH Q4H PRN #0 inhaler 11/24/16 [Last Taken Unknown] Ciprofloxacin HCl [Cipro] 500 mg PO Q12HR #30 tablet 11/24/16 [Last Taken Unknown] Metronidazole [Flagyl] 500 mg PO Q8HR #42 tablet 11/24/16 [Last Taken Unknown] Tramadol HCl [Ultram] 50 mg PO TID PRN #20 tablet 11/24/16 [Last Taken Unknown] Discharge Plan - Discharge Instructions Activity at Discharge: Increase Activity as Tolerated Diet at Discharge: Advance to Usual Diet
[2016-11-24] MEDS ORDERED: CIPROFLOXACIN LACTATE/D5W 400 MG in DEXTROSE 1 BAG IVPB SCH (14:00)
[2016-11-24] MEDS ORDERED: METRONIDAZOLE IVPB 500 MG in SODIUM CHLORIDE 1 BAG IVPB SCH (15:00)
[2016-11-24] MEDS ORDERED: ATORVASTATIN 20 MG TABLET PO SCH (22:00)
== END 2016-11-24 15:00 | disposition home or self-care (01) | DRG 392 ==
LOC: ER 09:53 → MEDSURG 15:11
PROVIDERS: ADMIT Family Medicine; ATTEND Family Medicine
DX: K57.32 Diverticulitis of large intestine without perforation or abscess without bleeding (principal); R11.2 Nausea with vomiting, unspecified; Z95.2 Presence of prosthetic heart valve; Z85.46 Personal history of malignant neoplasm of prostate; J44.9 Chronic obstructive pulmonary disease, unspecified; I25.10 Atherosclerotic heart disease of native coronary artery without angina pectoris
CPT/HCPCS: 99285 ×2; 96365; 83605; 85025; 80048; 81003; 74176; J0744; 99223

== ENCOUNTER 2017-04-16 14:26 | Emergency (ER) | payer MEDICARE ==
[2017-04-16 15:03] LABS: BASO % 0.4 % (0-6); GRAN % 63.6 % (47-80); HEMOGLOBIN 11.9 gm/dl (14.0-18.0); LYMPH % 24.6 % (16-45); MEAN CELL VOLUME 100.6 fl (81-97); MEAN PLATELET VOLUME 10.2 fl (7.4-10.4); MONO % 9.4 % (0-9); PLATELET COUNT 202 K/uL (130-400); RED BLOOD COUNT 3.48 M/uL (4.40-5.70); RED CELL DISTRIBUTION WIDTH 14.2 % (11.5-14.5); WHITE BLOOD COUNT W/O DIFF 4.9 K/uL (4.2-12.2)
[2017-04-16 15:04] LABS: MEAN CORPUSCULAR HEMOGLOBIN 34.1 pg (27-33)
[2017-04-16 15:14] LABS: ANION GAP 9.4 (7-16); CARBON DIOXIDE 21.6 mmol/L (22-30); CREATININE 1.4 mg/dL (0.66-1.25)
[2017-04-16 15:15] LABS: INR 1.01; PARTIAL THROMBOPLASTIN TIME 24.6 SECONDS (24.5-39.1); PROTHROMBIN TIME (PATIENT) 10.9 SECONDS (9.5-12.1)
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
--- NOTE | 2017-04-17 14:53 | RADIOLOGY REPORT ---
EXAM: LEFT FOOT, THREE VIEWS HISTORY: PATIENT HAS PAIN, SWELLING AND DISCOLORATION OF THE DISTAL HALF OF THE LEFT FOOT. PATIENT HAS A HISTORY OF INJURY TO THE LEFT FOOT. TECHNIQUE: Three views of the left foot are provided without comparison studies. FINDINGS: There is no radiographic evidence of an acute fracture or dislocation of the left foot. Soft tissue swelling is noted over the dorsum of the distal metatarsals. Advanced osteoarthritic changes are identified at the first metatarsal phalangeal joint with possible effusion. Postoperative changes are identified within the distal third metatarsal. Accessory ossicle at the lateral aspect of the cuboid is noted. IMPRESSION: ADVANCED OSTEOARTHRITIC CHANGES AND SOFT TISSUE SWELLING OVER THE DISTAL LEFT FOOT ARE NOTED WITHOUT RADIOGRAPHIC EVIDENCE OF AN ACUTE FRACTURE OR DISLOCATION OF THE LEFT FOOT. IF THERE IS FURTHER CLINICAL CONCERN THEN MRI OF THE LEFT FOOT CAN BE OBTAINED FOR FURTHER EVALUATION. JOB NUMBER: [id number] MTDD
--- NOTE | 2017-04-17 15:05 | RADIOLOGY REPORT ---
EXAM: LEFT FOREARM, TWO VIEWS HISTORY: PATIENT HAS AN ABRASION WITH A SKIN TEAR OF THE LEFT FOREARM STATUS POST TREE FALLING ON HIS LEFT FOREARM. TECHNIQUE: Two views of the left forearm are provided without comparison examinations. FINDINGS: There is radiographic evidence of a fracture or dislocation of the left forearm. A vascular calcification is noted. Soft tissue laceration is identified over the volar aspect of the mid left forearm. No radiopaque foreign bodies are identified. Osteoarthritic changes of the left wrist are noted. IMPRESSION: 1. SOFT TISSUE SWELLING IS NOTED OVER THE VOLAR ASPECT OF THE LEFT FOREARM WITHOUT RADIOGRAPHIC EVIDENCE OF AN ACUTE FRACTURE OR DISLOCATION OF THE LEFT FOREARM. 2. DEGENERATIVE CHANGES OF THE LEFT ELBOW ARE IDENTIFIED. JOB NUMBER: [id number] [facility]
== END 2017-04-16 16:40 | disposition home or self-care (01) ==
LOC: ER 14:26
DX: S50.812A Abrasion of left forearm, initial encounter (principal); S90.32XA Contusion of left foot, initial encounter; W20.8XXA Other cause of strike by thrown, projected or falling object, initial encounter; Y93.H9 Activity, other involving exterior property and land maintenance, building and construction; Y92.007 Garden or yard of unspecified non-institutional (private) residence as the place of occurrence of the external cause; Z79.01 Long term (current) use of anticoagulants; I10 Essential (primary) hypertension; J44.9 Chronic obstructive pulmonary disease, unspecified; I25.2 Old myocardial infarction; Z87.891 Personal history of nicotine dependence
CPT/HCPCS: 80048; 85025; 85610; 85730; 99284

== ENCOUNTER 2017-11-12 21:54 | Emergency (ER) | payer MEDICARE ==
--- NOTE | 2017-11-12 22:29 | Emergency Department Record ---
History of Present Illness - General Chief complaint: Lower Extremity Pain Stated complaint: LEFT FOOT PAIN Time Seen by Provider: 11/12/17 22:24 Source: Patient Mode of Arrival: Ambulatory Limitations: No limitations - History of Present Illness Initial comments: 87 yo male presents to ED for evaluation of swelling, redness, and pain over the dorsum of the left foot that began this afternoon. Patient denies recent injury, denies fevers, chills, or recent illness. Patient does report previous injury several months ago after dropping a tree on the foot, denies fracture following his injury. MD Complaint: Extremity pain Onset/Timin -: Days(s) Location: Left, Foot History of Same: No Radiation: None Quality: Aching Consistency: Constant Improves with: Nothing Worsens with: Palpation, Walking, Weight bearing Associated Symptoms: Denies other symptoms - Related Data Previous Rx's Medication Instructions Recorded Acetaminophen [Tylenol 500Mg Tab] 1,000 mg PO Q8HR PRN #120 tablet 11/24/16 Albuterol Sulfate [Ventolin Hfa] 2 puff INH Q4H PRN #0 inhaler 11/24/16 Clindamycin HCl 300 mg PO QID #40 capsule 11/12/17 Allergies Allergy/AdvReac Type Severity Reaction Status Date / Time morphine AdvReac Severe hallucinati Verified 11/23/16 14:42 ons Travel Screening - Travel/Exposure Within Last 30 Days Have you traveled within the last 30 days?: No Review of Systems Constitutional: Denies: Chills, Fever, Malaise, Night sweats Eyes: Denies: Eye discharge, Eye pain ENT: Denies: Congestion, Ear pain, Epistaxis Respiratory: Denies: Cough, Dyspnea Cardiovascular: Denies: Chest pain, Dyspnea on exertion Endocrine: Denies: Fatigue, Heat or cold intolerance Gastrointestinal: Denies: Abdominal pain, Nausea, Vomiting Genitourinary: Denies: Incontinence, Retention Musculoskeletal: Reports: Arthralgia. Denies: Back pain, Gout, Joint swelling Skin: Reports: Change in color. Denies: Bruising, Change in hair/nails Neurological: Denies: Confusion, Headache, Seizure Psychiatric: Denies: Anxiety Hematological/Lymphatic: Denies: Anemia, Blood Clots Past Medical History - SOCIAL HISTORY Smoking Status: Former smoker Alcohol Use: Occasional Drug Use: None - RESPIRATORY Hx Respiratory Disorders: Yes Hx COPD: Yes - CARDIOVASCULAR Hx Cardio Disorders: Yes Hx Cardiac Cath: Yes Hx Heart Attack: Yes (x 3-last one 2010) Hx Hypertension: Yes Hx Vascular Disease: Yes Hx Coronary Artery Bypass Graft: Yes Hx Coronary Stent: Yes Comment:: d/t breathing - NEURO Hx Neuro Disorders: No - GI Hx GI Disorders: Yes Hx Crohn's Disease: Yes Hx Reflux: Yes Hx of Polyps: Yes Comment:: hernia - Hx Genitourinary Disorders: Yes Hx Prostate Problems: Yes (hx of prostate cancer) - ENDOCRINE Hx Endocrine Disorders: No - MUSCULOSKELETAL Hx Musculoskeletal Disorders: Yes Hx Arthritis: Yes (all over) - PSYCH Hx Psych Problems: No - HEMATOLOGY/ONCOLOGY Hx Hematology/Oncology Disorders: Yes Hx Anemia: Yes Hx Cancer: Yes (prostate cancer) Hx Chemotherapy: No Hx Radiation Therapy: No Hx Blood Transfusions: Yes (>10 years ago) Hx Blood Transfusion Reaction: No Family Medical History Any Significant Family History?: Yes Hx Cancer: Brother/Sister Hx Heart Disease: Father Physical Exam - General General Appearance: Alert, Oriented x3, Cooperative, Mild distress Limitations: No limitations - Head Head exam: Atraumatic, Normocephalic, Normal inspection Head exam detail: negative: Abrasion, Contusion, Mills's sign, General tenderness, Hematoma, Laceration - Eye Eye exam: Normal appearance. negative: Conjunctival injection, Periorbital swelling, Periorbital tenderness, Scleral icterus - ENT Ear exam: negative: Auricular hematoma, Auricular trauma Nasal Exam: negative: Active bleeding, Discharge, Dried blood, Foreign body Mouth exam: negative: Drooling, Laceration, Muffled voice, Tongue elevation - Neck Neck exam: Normal inspection. negative: Meningismus, Tenderness - Respiratory Respiratory exam: Normal lung sounds bilaterally. negative: Rales, Respiratory distress, Rhonchi, Stridor - Cardiovascular Cardiovascular Exam: Regular rate, Normal rhythm, Normal heart sounds Peripheral Pulses: 3+: Dorsalis Pedis (L) - GI/Abdominal GI/Abdominal exam: Soft. negative: Rebound, Rigid, Tenderness - Rectal Rectal exam: Deferred - exam: Deferred - Extremities Extremities exam: Tenderness, Other (Mild STS and erythema over the dorsum of the left foot, not warm to palpation, measure approsimately 4.0 cm in diameter.) . negative: Calf tenderness, Pedal edema - Back Back exam: Denies: CVA tenderness (R), CVA tenderness (L) - Neurological Neurological exam: Alert, Oriented X3. negative: Motor sensory deficit - Psychiatric Psychiatric exam: Normal affect, Normal mood - Skin Skin exam: Erythema Distribution of rash: LLE Description of rash: Confluent, Erythematous Course Vital Signs 11/12/17 22:10 Temperature 97.8 F Pulse Rate [ 81 Pulse Ox Probe] Respiratory 18 Rate Blood Pressure 125/73 [Left Arm] Pulse Ox 97 - Reevaluation(s) Reevaluation #1: 11/12/17 23:43 Labs reviewed and are grossly unremarkable for an acute process. Left Foot: Post-surgical changes to the 3rd metatarsal DJD great toe Patient was updated on all results, and reports that he wants to go at this time. I did recommend returning to the ED in 24-48 hours for reassessment of his foot infection, sooner if symptoms worsen. Patient agrees with the plan as discussed and appears stable for discharge at this time. Medical Decision Making - Lab Data Result diagrams: 11/12/17 22:35 11/12/17 22:35 Disposition Disposition: Discharge Clinical Impression: Cellulitis Qualifiers: Site of cellulitis: extremity Site of cellulitis of extremity: lower extremity Laterality: left Qualified Code(s): L03.116 - Cellulitis of left lower limb Disposition: Home, Self-Care Condition: (2) Stable Instructions: Cellulitis (ED) Additional Instructions: Return to ED in 24-48 hours for re-examination of your foot infection, sooner if your symptoms worsen. Clindamycin as directed. Follow-up with your family doctor in 3-5 days as directed. Prescriptions: Clindamycin HCl 300 mg PO QID #40 capsule Forms: Patient Portal Access Time of Disposition: 23:49 Quality - Quality Measures Quality Measures: N/A - Blood Pressure Screening Does Patient Have Any of the Following: No Blood Pressure Classification: Pre-Hypertensive BP Reading Systolic Measurement: 125 Diastolic Measurement: 73 Screening for High Blood Pressure: < Pre-Hypertensive BP, F/U Documented > [ G8950] Pre-Hypertensive Follow-up Interventions: Referral to alternative/primary care provider.
[2017-11-12 22:56] LABS: BASO % 0.1 % (0-6); EOS % 2.1 % (0-6); GRAN % 67.3 % (47-80); HEMATOCRIT 36.8 % (42.0-52.0); HEMOGLOBIN 12.2 gm/dl (14.0-18.0); LYMPH % 21.3 % (16-45); MEAN CELL VOLUME 99.2 fl (81-97); MEAN CORPUSCULAR HGB CONC 33.2 g/dl (32-36); MEAN PLATELET VOLUME 9.9 fl (7.4-10.4); MONO % 9.2 % (0-9); PLATELET COUNT 204 K/uL (130-400); RED BLOOD COUNT 3.71 M/uL (4.40-5.70); RED CELL DISTRIBUTION WIDTH 14.1 % (11.5-14.5)
[2017-11-12 23:00] LABS: MEAN CORPUSCULAR HEMOGLOBIN 32.8 pg (27-33)
[2017-11-12] MEDS ORDERED: CLINDAMYCIN 600MG/50ML PREMIX 600 MG/50 ML BAG IVPB ONE (23:07)
[2017-11-12 23:08] LABS: BLOOD UREA NITROGEN 22 mg/dL (8-23); CREATININE 1.1 mg/dL (0.7-1.2); EST GLOMERULAR FILTRATION RATE > 60 mL/min; TOTAL PROTEIN 7.4 g/dL (6.6-8.7)
[2017-11-12 23:10] LABS: GLUCOSE,RANDOM 101 mg/dL (74-109)
[2017-11-12 23:13] LABS: ALB/GLOB RATIO 1.4 (1.1-1.8); ALBUMIN 4.3 g/dL (4.0-5.0); ALKALINE PHOSPHATASE 48 U/L (40-129); ALT/SGPT 16 U/L (<41); AST/SGOT 22 U/L (10.0-50.0); C-REACTIVE PROTEIN 0.18 mg/dL (<0.5)
[2017-11-12 23:41] LABS: ERYTHROCYTE SEDIMENTATION RATE 10 mm/hr (0-20)
--- NOTE | 2017-11-13 23:52 | RADIOLOGY REPORT ---
EXAM: FOOT, LEFT 3 VIEWS HISTORY: PAIN AND SWELLING. TECHNIQUE: Three views of the left foot. COMPARISON: Prior left foot 04/16/17. ENCOUNTER: Initial. FINDINGS: Osteopenia. Postsurgical changes of the third metatarsal. Advanced degenerative change of the great toe. No radiographic evidence for an acute fracture or dislocation. Vascular calcifications. Calcaneal spurs. Dorsal soft tissue swelling. IMPRESSION: OSTEOPENIA WITH DEGENERATIVE CHANGES. DORSAL SOFT TISSUE SWELLING. POSTSURGICAL CHANGE OF THE THIRD METATARSAL. JOB NUMBER: [id number] [facility]
== END 2017-11-13 00:10 | disposition home or self-care (01) ==
LOC: ER 21:54
DX: L03.116 Cellulitis of left lower limb (principal); J44.9 Chronic obstructive pulmonary disease, unspecified; I10 Essential (primary) hypertension; I25.2 Old myocardial infarction; Z95.5 Presence of coronary angioplasty implant and graft; Z87.891 Personal history of nicotine dependence
CPT/HCPCS: 80053; 85025; 85651; 86140; 96374; 99284

== ENCOUNTER 2018-05-10 10:37 | Emergency (ER) | payer MEDICARE ==
[2018-05-10] MEDS ORDERED: ASPIRIN 81 MG CHEWABLE TABLET PO ONE (10:43)
[2018-05-10] MEDS ORDERED: FENTANYL PF 100MCG/2ML VIAL IVP ONE (10:47)
--- NOTE | 2018-05-10 10:48 | Emergency Department Record ---
History of Present Illness - General Chief Complaint: Chest Pain Stated Complaint: CHEST PAIN Time Seen by Provider: 05/10/18 10:39 Source: Patient Mode of Arrival: Ambulatory Limitations: No limitations - History of Present Illness Initial Comments: 88 yo male presents with a concern about chest pain. The pain started last night in the evening. The sensation is a heaviness. He reports constant pain since 9-10pm last night. He has known CAD with prior [place] and CABG. He has a spinal stimulator. He did not take any nitro prior to arrival. 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 His last cardiology check up was over a year ago. He feels some shortness of breath. He did not bring the device that inactivates his spinal stimulator. The pain does not go to his back or abdomen. MD Complaint: Chest pain -: Hour(s) Pain Location: Substernal Quality: Aching, Heaviness Consistency: Constant - Related Data Previous Rx's Medication Instructions Recorded Acetaminophen [Tylenol 500Mg Tab] 1,000 mg PO Q8HR PRN #120 tablet 11/24/16 Albuterol Sulfate [Ventolin Hfa] 2 puff INH Q4H PRN #0 inhaler 11/24/16 Clindamycin HCl 300 mg PO QID #40 capsule 11/12/17 Allergies Allergy/AdvReac Type Severity Reaction Status Date / Time morphine AdvReac Severe hallucinati Verified 11/23/16 14:42 ons Review of Systems Constitutional: Denies: Chills, Fever, Malaise, Weakness Eyes: Denies: Eye discharge ENT: Denies: Congestion, Throat pain Respiratory: Reports: As per HPI, Dyspnea Cardiovascular: Reports: As per HPI, Chest pain Endocrine: Denies: Fatigue Gastrointestinal: Denies: Abdominal pain, Diarrhea, Nausea, Vomiting Genitourinary: Denies: Dysuria, Frequency, Hematuria Musculoskeletal: Denies: Arthralgia, Back pain, Myalgia, Neck pain Skin: Denies: Bruising, Change in color, Rash Neurological: Denies: Headache Psychiatric: Denies: Anxiety Hematological/Lymphatic: Denies: Blood Clots, Easy bleeding, Easy bruising, Swollen glands Past Medical History - SOCIAL HISTORY Smoking Status: Former smoker Drug Use: None - RESPIRATORY Hx Respiratory Disorders: Yes Hx COPD: Yes - CARDIOVASCULAR Hx Cardio Disorders: Yes Hx Cardiac Cath: Yes Hx Heart Attack: Yes (x 3-last one 2010) Hx Hypertension: Yes Hx Vascular Disease: Yes Hx Coronary Artery Bypass Graft: Yes Hx Coronary Stent: Yes Comment:: d/t breathing - NEURO Hx Neuro Disorders: No - GI Hx GI Disorders: Yes Hx Crohn's Disease: Yes Hx Reflux: Yes Hx of Polyps: Yes Comment:: hernia - Hx Genitourinary Disorders: Yes Hx Prostate Problems: Yes (hx of prostate cancer) - ENDOCRINE Hx Endocrine Disorders: No - MUSCULOSKELETAL Hx Musculoskeletal Disorders: Yes Hx Arthritis: Yes (all over) - PSYCH Hx Psych Problems: No - HEMATOLOGY/ONCOLOGY Hx Hematology/Oncology Disorders: Yes Hx Anemia: Yes Hx Cancer: Yes (prostate cancer) Hx Chemotherapy: No Hx Radiation Therapy: No Hx Blood Transfusions: Yes (>10 years ago) Hx Blood Transfusion Reaction: No Family Medical History Hx Cancer: Brother/Sister Hx Heart Disease: Father Physical Exam - General General Appearance: Alert, Oriented x3, Cooperative, No acute distress Limitations: No limitations - Head Head exam: Normal inspection - Eye Eye exam: Normal appearance. negative: Conjunctival injection, Scleral icterus - ENT ENT exam: Normal exam, Mucous membranes moist Ear exam: Normal external inspection Nasal Exam: Normal inspection Mouth exam: Normal external inspection - Neck Neck exam: Normal inspection - Respiratory Respiratory exam: Normal lung sounds bilaterally. negative: Respiratory distress - Cardiovascular Cardiovascular Exam: Regular rate, Normal rhythm, Normal heart sounds - GI/Abdominal GI/Abdominal exam: Soft. negative: Tenderness - Rectal Rectal exam: Deferred - exam: Deferred - Extremities Extremities exam: Normal inspection - Back Back exam: Reports: Normal inspection, Full ROM. Denies: Muscle spasm, Rash noted, Tenderness - Neurological Neurological exam: Alert, Normal gait, Oriented X3, Reflexes normal - Psychiatric Psychiatric exam: Normal affect, Normal mood - Skin Skin exam: Dry, Intact, Normal color, Warm Course - Reevaluation(s) Reevaluation #1: EKG #1 1037 Rate 99 Rhythm sinus Gravity Normal Intervals Normal ST Limited significantly by artifact from his nerve stimulator ST changes lateral leads, NS inferior changes appears ischemic No old EKG. 05/10/18 10:46 [facility] called to discussed the presentation and EKG 05/10/18 10:57 BP improved to 150/110 nitro trial initiated 05/10/18 11:07 BP now 121/76 Pain decreased from 9 to 6/10 05/10/18 11:08 repeat EKG ordered 05/10/18 11:16 I JANNETTE Sagastume the PA for Dr English and Dr Jacques of the ED. The patient is accepted for transfer ED to ED The 2nd EKG was performed 1104 sinus rate of 89, intervals normal, axis normal ST depression lateral leads Troponin is normal BNP elevated at 2500 05/10/18 11:23 Pain improved to 2/10 BP 122/70. Appears much improved and comfortable. 05/10/18 11:36 CXR no infiltrate, heart size baseline, interstitial increased marking, may be edema 05/10/18 11:55 The patient continues to be very comfortable Delays in transfer given no EMS available at this time. 05/10/18 12:15 EMS in ED. Stable for transfer. Medical Decision Making - Lab Data Result diagrams: 05/10/18 10:42 05/10/18 10:42 Disposition Disposition: Transfer Clinical Impression: Chest pain, Unstable angina, Hypertension Disposition: Acute Care Hospital Transfer Transfer To: [facility] Reason For Transfer: Chest pain Accepting Physician: Amador Jacques Time Discussed w/Accepting Physician: 11:18 Condition: (3) Guarded Forms: Patient Portal Access Time of Disposition: 11:18 Quality - Quality Measures Quality Measures: N/A - Blood Pressure Screening Does Patient Have Any of the Following: Active Dx of HTN Blood Pressure Classification: Hypertensive Reading Systolic Measurement: 244 Diastolic Measurement: 111 Screening for High Blood Pressure: Patient Exclusion, Hx of HTN [G9744]
[2018-05-10] MEDS ORDERED: NITROGLYCERIN 0.4MG SL TABLET #25 BTL SL ONE (10:53)
[2018-05-10] MEDS: NITROGLYCERIN 0.4MG SL TABLET #25 BTL SL PRN ×3 (10:56→11:13)
[2018-05-10 11:00] LABS: BASO % 0.2 % (0-6); BLOOD UREA NITROGEN 21 mg/dL (8-23); CREATININE 1.1 mg/dL (0.7-1.2); EOS % 3.5 % (0-6); EST GLOMERULAR FILTRATION RATE > 60 mL/min; GRAN % 64.7 % (47-80); HEMATOCRIT 36.5 % (42.0-52.0); HEMOGLOBIN 11.7 gm/dl (14.0-18.0); LYMPH % 23.9 % (16-45); MEAN CELL VOLUME 102.2 fl (81-97); MEAN CORPUSCULAR HGB CONC 32.1 g/dl (32-36); MONO % 7.7 % (0-9); PLATELET COUNT 225 K/uL (130-400); RED BLOOD COUNT 3.57 M/uL (4.40-5.70); RED CELL DISTRIBUTION WIDTH 13.7 % (11.5-14.5)
[2018-05-10] MEDS ORDERED: NITROGLYCERIN/D5W 50 MG/250 ML ML IV SCH (11:00)
[2018-05-10 11:01] LABS: MEAN CORPUSCULAR HEMOGLOBIN 32.7 pg (27-33); TOTAL PROTEIN 7.5 g/dL (6.6-8.7)
[2018-05-10 11:03] LABS: GLUCOSE,RANDOM 151 mg/dL (74-109); PARTIAL THROMBOPLASTIN TIME 24.8 SECONDS (24.5-39.1)
[2018-05-10 11:05] LABS: ALT/SGPT 15 U/L (<41)
[2018-05-10 11:06] LABS: ALB/GLOB RATIO 1.4 (1.1-1.8); ALBUMIN 4.4 g/dL (4.0-5.0); ALKALINE PHOSPHATASE 61 U/L (40-129); AST/SGOT 20 U/L (10.0-50.0); CREATINE PHOSPHOKINASE 199 U/L (39-308)
[2018-05-10 11:09] LABS: CKMB 5.8 ng/mL (<6.73)
[2018-05-10] MEDS ORDERED: HEPARIN SODIUM 1000 UNIT/1 ML 10ML VIAL IVP ONE (11:24)
[2018-05-10] MEDS ORDERED: HEPARIN SODIUM/D5W 25,000 UNITS/500 ML BAG IV SCH (11:45)
[2018-05-10] MEDS ORDERED: CARBAMIDE PEROXIDE 15ML BTL OT ONE (11:49)
--- NOTE | 2018-05-13 14:50 | RADIOLOGY REPORT ---
EXAM: CHEST, ONE VIEW HISTORY: RETROSTERNAL CHEST PAIN BEGINNING LAST NIGHT. HYPERTENSION. TECHNIQUE: A single mobile upright view of the chest was obtained. Comparison: Unilateral left ribs with PA chest dated 10/17/13. FINDINGS: Post median sternotomy changes are redemonstrated. A dual lead intraspinal catheter is again noted in place with the lead tips at the mid thoracic level. The heart is not grossly enlarged. No definite pulmonary venous hypertension. The thoracic aorta remains tortuous and atherosclerotic. Mixed primarily reticular opacities are noted in the mid and lower lungs, new since the prior examination. No lung consolidation, costophrenic angle blunting or pneumothorax. Surgical anchors are again noted in the proximal right humerus. IMPRESSION: 1. POST MEDIAN STERNOTOMY CHANGES REDEMONSTRATED. 2. MIXED PRIMARILY RETICULAR OPACITIES IN THE MID AND LOWER LUNGS NEW SINCE THE PRIOR EXAMINATION. IT IS INDETERMINATE WHETHER THESE ARE THE RESULT OF CHRONIC INTERSTITIAL CHANGE, PNEUMONITIS OR EDEMA. JOB NUMBER: [id number] MTDD
== END 2018-05-10 12:20 | disposition short-term general hospital (02) ==
LOC: ER 10:37
DX: I25.110 Atherosclerotic heart disease of native coronary artery with unstable angina pectoris (principal); J44.9 Chronic obstructive pulmonary disease, unspecified; I10 Essential (primary) hypertension; I25.2 Old myocardial infarction; Z87.891 Personal history of nicotine dependence; Z96.9 Presence of functional implant, unspecified; Z95.1 Presence of aortocoronary bypass graft
CPT/HCPCS: 99285 ×2; 96365; 96366; 96375; 96368; 82550; 85025; 85730; 85610; 82553; 80048; 80053; 84484; 83880; 71045; 93005; 93010; J3010

== ENCOUNTER 2018-11-21 10:08 | Emergency (ER) | payer MEDICARE ==
[2018-11-21] MEDS ORDERED: INDOMETHACIN 25 MG CAPSULE PO ONE (10:30)
--- NOTE | 2018-11-21 10:38 | Emergency Department Record ---
History of Present Illness - General Chief complaint: Extremity Problem Stated complaint: LT FOOT BIG TOE PAIN Time Seen by Provider: 11/21/18 10:28 Source: Patient Mode of Arrival: Ambulatory Limitations: No limitations - History of Present Illness Initial comments: pt c/o pain in l foot that kept him awake all night. he denies injury MD Complaint: Extremity pain, Joint pain, Joint swelling, Other (erythema) Onset/Timin -: Days(s) Location: Left, Foot History of Same: No Severity scale (1-10): 3 Quality: Other Consistency: Constant Improves with: Rest Worsens with: Walking, Weight bearing Associated Symptoms: Denies other symptoms - Related Data Previous Rx's Medication Instructions Recorded Acetaminophen [Tylenol 500Mg Tab] 1,000 mg PO Q8HR PRN #120 tablet 11/24/16 Albuterol Sulfate [Ventolin Hfa] 2 puff INH Q4H PRN #0 inhaler 11/24/16 Hydrocodone/Acetaminophen [[place] 0.5 - 1 tab PO TID PRN #7 tab 11/21/18 5mg/325mg] Indomethacin [Indocin] 25 mg PO BID #7 capsule 11/21/18 Allergies Allergy/AdvReac Type Severity Reaction Status Date / Time morphine AdvReac Severe hallucinati Verified 11/21/18 10:12 ons Travel Screening - Travel/Exposure Within Last 30 Days Have you traveled within the last 30 days?: No - Travel/Exposure Within Last Year Have you traveled outside the [place] in the last year?: No - Additonal Travel Details Have you been exposed to anyone with a communicable illness?: No - Travel Symptoms Symptom Screening: None Review of Systems Reviewed: No additional complaints except as noted below Constitutional: Reports: As per HPI. Denies: Chills, Fever, Malaise, Night sweats, Weakness, Weight change Eyes: Reports: As per HPI. Denies: Eye discharge, Eye pain, Photophobia, Vision change ENT: Reports: As per HPI. Denies: Congestion, Dental pain, Ear pain, Epistaxis , Hearing loss, Throat pain Respiratory: Reports: As per HPI. Denies: Cough, Dyspnea, Hemoptysis, Stridor, Wheezes Cardiovascular: Reports: As per HPI. Denies: Arrhythmia, Chest pain, Dyspnea on exertion, Edema, Murmurs, Orthopnea, Palpitations, Paroxysmal nocturnal dyspnea, Rheumatic Fever, Syncope Endocrine: Reports: As per HPI. Denies: Fatigue, Heat or cold intolerance, Polydipsia, Polyuria Gastrointestinal: Reports: As per HPI. Denies: Abdominal pain, Constipation, Diarrhea, Hematemesis, Hematochezia, Melena, Nausea, Vomiting Genitourinary: Reports: As per HPI. Denies: Dysuria, Frequency, Hematuria, Incontinence, Retention, Testicular pain, Testicular mass, Urgency Musculoskeletal: Reports: As per HPI. Denies: Arthralgia, Back pain, Gout, Joint swelling, Myalgia, Neck pain Skin: Reports: As per HPI. Denies: Bruising, Change in color, Change in hair/ nails, Lesions, Pruritus, Rash Neurological: Reports: As per HPI. Denies: Abnormal gait, Confusion, Headache, Numbness, Paresthesias, Seizure, Tingling, Tremors, Vertigo, Weakness Psychiatric: Reports: As per HPI. Denies: Anxiety, Auditory hallucinations, Depression, Homicidal thoughts, Suicidal thoughts, Visual hallucinations Hematological/Lymphatic: Reports: As per HPI. Denies: Anemia, Blood Clots, Easy bleeding, Easy bruising, Swollen glands Past Medical History - SOCIAL HISTORY Smoking Status: Former smoker Alcohol Use: Occasional Drug Use: None - RESPIRATORY Hx Respiratory Disorders: Yes Hx COPD: Yes - CARDIOVASCULAR Hx Cardio Disorders: Yes Hx Cardiac Cath: Yes Hx Heart Attack: Yes (x 3-last one 2010March 2018) Hx Hypertension: Yes Hx Vascular Disease: Yes Hx Coronary Artery Bypass Graft: Yes Hx Coronary Stent: Yes Comment:: d/t breathing - NEURO Hx Neuro Disorders: No - GI Hx GI Disorders: Yes Hx Crohn's Disease: Yes Hx Reflux: Yes Hx of Polyps: Yes Comment:: hernia - Hx Genitourinary Disorders: Yes Hx Prostate Problems: Yes (hx of prostate cancer) - ENDOCRINE Hx Endocrine Disorders: No - MUSCULOSKELETAL Hx Musculoskeletal Disorders: Yes Hx Arthritis: Yes (all over) - PSYCH Hx Psych Problems: No - HEMATOLOGY/ONCOLOGY Hx Hematology/Oncology Disorders: Yes Hx Anemia: Yes Hx Cancer: Yes (prostate cancer) Hx Chemotherapy: No Hx Radiation Therapy: No Hx Blood Transfusions: Yes (>10 years ago) Hx Blood Transfusion Reaction: No Family Medical History Any Significant Family History?: Yes Hx Cancer: Brother/Sister Hx Heart Disease: Father Physical Exam - General General Appearance: Alert, Oriented x3, Cooperative, No acute distress - Head Head exam: Normal inspection - Eye Eye exam: Normal appearance, PERRL, EOMI Pupils: Normal accommodation - ENT ENT exam: Normal exam, Mucous membranes moist, Normal external ear exam, Normal orophraynx Ear exam: Normal external inspection. negative: External canal tenderness Nasal Exam: Normal inspection. negative: Discharge, Sinus tenderness Mouth exam: Normal external inspection, Tongue normal Teeth exam: Normal inspection. negative: Dental caries Throat exam: Normal inspection. negative: Tonsillar erythema, Tonsillar exudate - Neck Neck exam: Normal inspection, Full ROM. negative: Tenderness - Respiratory Respiratory exam: Normal lung sounds bilaterally. negative: Respiratory distress - Cardiovascular Cardiovascular Exam: Regular rate, Normal rhythm, Normal heart sounds - GI/Abdominal GI/Abdominal exam: Soft, Normal bowel sounds. negative: Tenderness - Rectal Rectal exam: Deferred - exam: Deferred - Extremities Extremities exam: Normal inspection, Full ROM, Normal capillary refill, Tenderness (great toe w erythema and streaking up foot) - Back Back exam: Reports: Normal inspection, Full ROM. Denies: Muscle spasm, Rash noted, Tenderness - Neurological Neurological exam: Alert, Normal gait, Oriented X3, Reflexes normal - Psychiatric Psychiatric exam: Normal affect, Normal mood - Skin Skin exam: Dry, Intact, Normal color, Warm Course Vital Signs 11/21/18 10:18 Temperature 97.8 F Pulse Rate 76 Respiratory 20 Rate Blood Pressure 173/77 Pulse Ox 97 Medical Decision Making - Lab Data Result diagrams: 11/21/18 10:37 11/21/18 10:37 Disposition Disposition: Discharge Clinical Impression: Gout Qualifiers: Gout site: toe Gout etiology: unspecified cause Chronicity: acute Laterality: left Qualified Code(s): M10.9 - Gout, unspecified Disposition: Home, Self-Care Condition: (1) Good Instructions: Gout (ED), Low Purine Diet (ED) Additional Instructions: follow up with family doctor. return sooner if worse. ice and elevate Prescriptions: Hydrocodone/Acetaminophen [[place] 5mg/325mg] 0.5 - 1 tab PO TID PRN #7 tab PRN Reason: Pain - General Indomethacin [Indocin] 25 mg PO BID #7 capsule Forms: Patient Portal Access Quality - Quality Measures Quality Measures: N/A - Blood Pressure Screening Does Patient Have Any of the Following: Active Dx of HTN Blood Pressure Classification: Hypertensive Reading Systolic Measurement: 173 Diastolic Measurement: 77 Screening for High Blood Pressure: Patient Exclusion, Hx of HTN [G9744]
[2018-11-21 10:44] LABS: BASO % 0.4 % (0-6); EOS % 0.5 % (0-6); GRAN % 73.1 % (47-80); HEMOGLOBIN 11.7 gm/dl (14.0-18.0); LYMPH % 17.9 % (16-45); MEAN CELL VOLUME 101.1 fl (81-97); MEAN CORPUSCULAR HGB CONC 32.5 g/dl (32-36); MEAN PLATELET VOLUME 9.5 fl (7.4-10.4); MONO % 8.1 % (0-9); PLATELET COUNT 251 K/uL (130-400); RED BLOOD COUNT 3.56 M/uL (4.40-5.70); RED CELL DISTRIBUTION WIDTH 13.6 % (11.5-14.5); WHITE BLOOD COUNT W/O DIFF 5.7 K/uL (4.2-12.2)
[2018-11-21 10:45] LABS: MEAN CORPUSCULAR HEMOGLOBIN 32.8 pg (27-33)
[2018-11-21 10:57] LABS: BLOOD UREA NITROGEN 18 mg/dL (8-23); CREATININE 1.2 mg/dL (0.7-1.2); EST GLOMERULAR FILTRATION RATE > 60 mL/min
[2018-11-21 11:00] LABS: GLUCOSE,RANDOM 120 mg/dL (74-109)
--- NOTE | 2018-11-23 08:22 | RADIOLOGY REPORT ---
EXAM: LEFT GREAT TOE HISTORY: PAIN, SWELLING, AND REDNESS AT THE LEFT GREAT TOE. TECHNIQUE: Three views of the left great toe were obtained. Comparison: Left foot x-rays dated 11/12/17. FINDINGS: There are severe arthritic changes of the first metatarsal phalangeal joint which are stable. There are mild arthritic changes of the interphalangeal joint which are also stable. There is a small cyst within the mid shaft of the first distal phalanx which is unchanged from the prior study. Post surgical changes are noted within the third metatarsal head. There are probable hammertoe deformities of the second and third toes. There is no acute fracture or osseous erosion. There is no soft tissue air or radiopaque foreign body. IMPRESSION: 1. NO ACUTE PATHOLOGY IDENTIFIED. 2. STABLE ADVANCED ARTHRITIC CHANGES OF THE FIRST METATARSAL PHALANGEAL JOINT. 3. ADDITIONAL CHRONIC FINDINGS ABOVE. JOB NUMBER: [id number] MTDD
== END 2018-11-21 11:45 | disposition home or self-care (01) ==
LOC: ER 10:08
DX: M10.072 Idiopathic gout, left ankle and foot (principal); J44.9 Chronic obstructive pulmonary disease, unspecified; I10 Essential (primary) hypertension; I25.2 Old myocardial infarction; Z87.891 Personal history of nicotine dependence
CPT/HCPCS: 73660; 80048; 84550; 85025; 99283; 99284

== ENCOUNTER 2018-11-25 17:05 | Emergency (ER) | payer MEDICARE ==
--- NOTE | 2018-11-25 18:31 | Emergency Department Record ---
History of Present Illness - General Stated Complaint: GOUT ON LEFT FOOT Time Seen by Provider: 11/25/18 18:21 Source: Patient Mode of Arrival: Ambulatory Limitations: No limitations - History of Present Illness Initial Comments: 88 yo male presents to ED for re-evaluation following diagnosis and treatment for gout of the left great toe 5 days ago. Patient reports that the great toe is still red, swollen, but reports that his pain symptoms are improved following treatment with [place] and Indomethacin. Patient reports a history of Gout previously. Patient denies fevers, chills, or recent injury to the toe. MD Complaint: Other Onset/Timin -: Days(s) Injury: Toes: Left Improves With: Immobilization Worsens With: Movement - Related Data Previous Rx's Medication Instructions Recorded Acetaminophen [Tylenol 500Mg Tab] 1,000 mg PO Q8HR PRN #120 tablet 11/24/16 Albuterol Sulfate [Ventolin Hfa] 2 puff INH Q4H PRN #0 inhaler 11/24/16 Hydrocodone/Acetaminophen [[place] 0.5 - 1 tab PO TID PRN #7 tab 11/21/18 5mg/325mg] Indomethacin [Indocin] 25 mg PO BID #7 capsule 11/21/18 Cephalexin [Keflex] 500 mg PO QID #28 cap 11/25/18 Hydrocodone/Acetaminophen [[place] 1 each PO Q6H PRN #8 tablet 11/25/18 5-325 Tablet] Indomethacin [Indocin] 25 mg PO TID #21 capsule 11/25/18 Prednisone [Prednisone 20Mg] 20 mg PO BID #15 tab 11/25/18 Allergies Allergy/AdvReac Type Severity Reaction Status Date / Time morphine AdvReac Severe hallucinati Verified 11/21/18 10:12 ons Review of Systems Constitutional: Denies: Chills, Fever, Malaise, Night sweats Eyes: Denies: Eye discharge, Eye pain ENT: Denies: Congestion, Ear pain, Epistaxis Respiratory: Denies: Cough, Dyspnea Cardiovascular: Denies: Chest pain, Dyspnea on exertion Endocrine: Denies: Fatigue, Heat or cold intolerance Gastrointestinal: Denies: Abdominal pain, Nausea, Vomiting Genitourinary: Denies: Incontinence, Retention Musculoskeletal: Reports: Arthralgia, Gout, Joint swelling. Denies: Back pain, Myalgia Skin: Reports: Change in color. Denies: Bruising, Change in hair/nails Neurological: Denies: Abnormal gait, Tingling, Tremors Psychiatric: Denies: Anxiety Hematological/Lymphatic: Denies: Anemia, Blood Clots Past Medical History - SOCIAL HISTORY Smoking Status: Former smoker Drug Use: None - RESPIRATORY Hx Respiratory Disorders: Yes Hx COPD: Yes - CARDIOVASCULAR Hx Cardio Disorders: Yes Hx Cardiac Cath: Yes Hx Heart Attack: Yes (x 3-last one 2010March 2018) Hx Hypertension: Yes Hx Vascular Disease: Yes Hx Coronary Artery Bypass Graft: Yes Hx Coronary Stent: Yes Comment:: d/t breathing - NEURO Hx Neuro Disorders: No - GI Hx GI Disorders: Yes Hx Crohn's Disease: Yes Hx Reflux: Yes Hx of Polyps: Yes Comment:: hernia - Hx Genitourinary Disorders: Yes Hx Prostate Problems: Yes (hx of prostate cancer) - ENDOCRINE Hx Endocrine Disorders: No - MUSCULOSKELETAL Hx Musculoskeletal Disorders: Yes Hx Arthritis: Yes (all over) - PSYCH Hx Psych Problems: No - HEMATOLOGY/ONCOLOGY Hx Hematology/Oncology Disorders: Yes Hx Anemia: Yes Hx Cancer: Yes (prostate cancer) Hx Chemotherapy: No Hx Radiation Therapy: No Hx Blood Transfusions: Yes (>10 years ago) Hx Blood Transfusion Reaction: No Family Medical History Hx Cancer: Brother/Sister Hx Heart Disease: Father Physical Exam - General General Appearance: Alert, Oriented x3, Cooperative, Mild distress Limitations: No limitations - Head Head exam: Atraumatic, Normocephalic, Normal inspection Head exam detail: negative: Abrasion, Contusion, Mills's sign, General tenderness, Hematoma, Laceration - Eye Eye exam: Normal appearance. negative: Conjunctival injection, Periorbital swelling, Periorbital tenderness, Scleral icterus - ENT Ear exam: negative: Auricular hematoma, Auricular trauma Nasal Exam: negative: Active bleeding, Discharge, Dried blood, Foreign body Mouth exam: negative: Drooling, Laceration, Muffled voice, Tongue elevation - Neck Neck exam: Normal inspection. negative: Meningismus, Tenderness - Respiratory Respiratory exam: Normal lung sounds bilaterally. negative: Respiratory distress, Rhonchi, Stridor, Wheezes - Cardiovascular Cardiovascular Exam: Regular rate, Normal rhythm, Normal heart sounds - GI/Abdominal GI/Abdominal exam: Soft. negative: Distended, Rebound, Rigid, Tenderness - Rectal Rectal exam: Deferred - exam: Deferred - Extremities Extremities exam: Tenderness, Other (STS, erythema present to the left great toe , erythema extends to the forefoot region of the dorsum of the foot, strong DPP. ). 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 Patient reports that his pain symptoms have improved, toe however visually appears about the same. Will extend the patient's [place] and Indomethacin for 5 more days Will also initiate treatment with Prednisone and Keflex with strict instructions to see his PCP (Dr. Miles) Thursday for re-evaluation to ensure his symptoms are improving. Patient is in agreement with the plan of care as discussed. Disposition Disposition: Discharge Clinical Impression: Gout Qualifiers: Gout site: toe Gout etiology: unspecified cause Chronicity: acute Laterality: left Qualified Code(s): M10.9 - Gout, unspecified Disposition: Home, Self-Care Condition: (2) Stable Instructions: Gout (ED) Additional Instructions: Return to ED if your symptoms worsen or if you have any concerns. Idomethacin, [place], Keflex, and Prednisone as directed. Follow-up with Dr. Miles in 3-4 days without fail. Prescriptions: Cephalexin [Keflex] 500 mg PO QID #28 cap Hydrocodone/Acetaminophen [[place] 5-325 Tablet] 1 each PO Q6H PRN #8 tablet PRN Reason: Pain - Mod To Severe (5-10) Indomethacin [Indocin] 25 mg PO TID #21 capsule Prednisone [Prednisone 20Mg] 20 mg PO BID #15 tab Forms: Patient Portal Access Time of Disposition: 18:31 Quality - Quality Measures Quality Measures: N/A - Blood Pressure Screening Does Patient Have Any of the Following: No Blood Pressure Classification: Pre-Hypertensive BP Reading Systolic Measurement: 130 Diastolic Measurement: 51 Screening for High Blood Pressure: < Pre-Hypertensive BP, F/U Documented > [ G8950] Pre-Hypertensive Follow-up Interventions: Referral to alternative/primary care provider.
== END 2018-11-25 18:39 | disposition home or self-care (01) ==
LOC: ER 17:05
DX: M10.072 Idiopathic gout, left ankle and foot (principal)
CPT/HCPCS: 99282; 99283

== ENCOUNTER 2018-12-24 12:22 | Emergency (ER) | payer MEDICARE ==
[2018-12-24] MEDS ORDERED: IBUPROFEN 600 MG TABLET PO ONE (12:45)
--- NOTE | 2018-12-24 12:51 | Emergency Department Record ---
History of Present Illness - General Chief complaint: Lower Extremity Pain Stated complaint: LEFT FOOT PAIN Time Seen by Provider: 12/24/18 12:43 Source: Patient Mode of Arrival: Wheelchair Limitations: No limitations - History of Present Illness Initial comments: Pt with one to two day hx of pain to the left lateral foot and ankle. No injury. Painful to bear weight. No fever, no illness. No DM. +Hx of gout one month ago in same foot at base of great toe. Treated with Indocin and that resolved. No other complaints. Location: Left, Foot Severity scale (1-10): 6 - Related Data Previous Rx's Medication Instructions Recorded Acetaminophen [Tylenol 500Mg Tab] 1,000 mg PO Q8HR PRN #120 tablet 11/24/16 Albuterol Sulfate [Ventolin Hfa] 2 puff INH Q4H PRN #0 inhaler 11/24/16 Hydrocodone/Acetaminophen [[place] 0.5 - 1 tab PO TID PRN #7 tab 11/21/18 5mg/325mg] Cephalexin [Keflex] 500 mg PO QID #28 cap 11/25/18 Hydrocodone/Acetaminophen [[place] 1 each PO Q6H PRN #8 tablet 11/25/18 5-325 Tablet] Prednisone [Prednisone 20Mg] 20 mg PO BID #15 tab 11/25/18 Prednisone [Prednisone 10Mg] 10 mg PO ASDIR 9 Days #18 tab 12/24/18 Allergies Allergy/AdvReac Type Severity Reaction Status Date / Time morphine AdvReac Severe hallucinati Verified 12/24/18 12:25 ons Travel Screening - Travel/Exposure Within Last 30 Days Have you traveled within the last 30 days?: No Review of Systems Constitutional: Denies: Chills, Fever, Weakness Eyes: Denies: Eye discharge, Photophobia ENT: Denies: Congestion, Ear pain Respiratory: Denies: Cough, Hemoptysis Cardiovascular: Denies: Arrhythmia, Chest pain, Syncope Endocrine: Denies: Fatigue, Polydipsia, Polyuria Gastrointestinal: Denies: Abdominal pain, Constipation, Diarrhea, Nausea Skin: Reports: As per HPI, Other (redness to lateral left foot/ankle ) Neurological: Denies: Confusion, Headache, Weakness Psychiatric: Denies: Anxiety Hematological/Lymphatic: Denies: Anemia Past Medical History - SOCIAL HISTORY Smoking Status: Former smoker Alcohol Use: None Drug Use: None - RESPIRATORY Hx Respiratory Disorders: Yes Hx COPD: Yes - CARDIOVASCULAR Hx Cardio Disorders: Yes Hx Cardiac Cath: Yes Hx Heart Attack: Yes (x 3-last one 2010March 2018) Hx Hypertension: Yes Hx Vascular Disease: Yes Hx Coronary Artery Bypass Graft: Yes Hx Coronary Stent: Yes Comment:: d/t breathing - NEURO Hx Neuro Disorders: No - GI Hx GI Disorders: Yes Hx Crohn's Disease: Yes Hx Reflux: Yes Hx of Polyps: Yes Comment:: hernia - Hx Genitourinary Disorders: Yes Hx Prostate Problems: Yes (hx of prostate cancer) Comment:: Gout - ENDOCRINE Hx Endocrine Disorders: No - MUSCULOSKELETAL Hx Musculoskeletal Disorders: Yes Hx Arthritis: Yes (all over) - PSYCH Hx Psych Problems: No - HEMATOLOGY/ONCOLOGY Hx Hematology/Oncology Disorders: Yes Hx Anemia: Yes Hx Cancer: Yes (prostate cancer) Hx Chemotherapy: No Hx Radiation Therapy: No Hx Blood Transfusions: Yes (>10 years ago) Hx Blood Transfusion Reaction: No Family Medical History Any Significant Family History?: Yes Hx Cancer: Brother/Sister Hx Heart Disease: Father Physical Exam - General General Appearance: Alert, Oriented x3, Cooperative, No acute distress - Head Head exam: Normal inspection - Eye Eye exam: Normal appearance, PERRL - ENT ENT exam: Normal exam, Mucous membranes moist, Normal external ear exam, Normal orophraynx, TM's normal bilaterally - Respiratory Respiratory exam: Normal lung sounds bilaterally. negative: Respiratory distress - Cardiovascular Cardiovascular Exam: Regular rate, Normal rhythm, Normal heart sounds. negative : Tachycardia Peripheral Pulses: 2+: Radial (R), Radial (L), Dorsalis Pedis (R), Dorsalis Pedis (L) - GI/Abdominal GI/Abdominal exam: Soft, Normal bowel sounds. negative: Tenderness - Extremities Extremities exam: Other (left foot with good DP/PT pusles. Tender to lateral posterior foot to lateral malleolus. Skin warm with erythema, no weeping or skin break. No pain to medial foot or toes. ) - Back Back exam: Reports: Normal inspection - Neurological Neurological exam: Alert, Normal gait, Oriented X3 - Psychiatric Psychiatric exam: Normal affect, Normal mood - Skin Skin exam: Normal color. negative: Petechiae, Urticaria Course Vital Signs 12/24/18 12:27 Temperature 98.3 F Pulse Rate 105 H Respiratory 20 Rate Blood Pressure 179/47 Pulse Ox 98 - Reevaluation(s) Reevaluation #1: 12/24/18 13:24 XRAY foot neg, labs reviewed. Recetn labs reviewed. Will treat as gout with close follow up with family doctor. Pt will return if fever, increased redness, pain or other concerns. Medical Decision Making - Lab Data Result diagrams: 12/24/18 12:45 12/24/18 12:45 Disposition Disposition: Discharge Clinical Impression: Gout Qualifiers: Gout site: foot Gout etiology: idiopathic Chronicity: acute Laterality: left Qualified Code(s): M10.072 - Idiopathic gout, left ankle and foot Disposition: Home, Self-Care Condition: (1) Good Instructions: Gout (ED) Additional Instructions: rest and take meds as instructed. Follow with your doctor in 3 days. Return to the ED if any concerns, fever, increased redness or pain. You are taking Plavix currently. You should not take Motrin or similar Indocin with this medication as it may cause issues with bleeding. Prescriptions: Prednisone [Prednisone 10Mg] 10 mg PO ASDIR 9 Days #18 tab Forms: Patient Portal Access Time of Disposition: 13:34 Quality - Quality Measures Quality Measures: N/A - Blood Pressure Screening Does Patient Have Any of the Following: No, Active Dx of HTN Blood Pressure Classification: Hypertensive Reading Systolic Measurement: 179 Diastolic Measurement: 47 Screening for High Blood Pressure: Patient Exclusion, Hx of HTN [G9744]
[2018-12-24 12:53] LABS: BASO % 0.2 % (0-6); EOS % 1.6 % (0-6); GRAN % 69.9 % (47-80); HEMATOCRIT 38.4 % (42.0-52.0); HEMOGLOBIN 12.4 gm/dl (14.0-18.0); LYMPH % 15.8 % (16-45); MEAN CELL VOLUME 100.5 fl (81-97); MEAN CORPUSCULAR HGB CONC 32.3 g/dl (32-36); MEAN PLATELET VOLUME 9.6 fl (7.4-10.4); MONO % 12.5 % (0-9); PLATELET COUNT 339 K/uL (130-400); RED BLOOD COUNT 3.82 M/uL (4.40-5.70); RED CELL DISTRIBUTION WIDTH 15.1 % (11.5-14.5)
[2018-12-24 12:55] LABS: MEAN CORPUSCULAR HEMOGLOBIN 32.4 pg (27-33)
[2018-12-24 13:28] LABS: ERYTHROCYTE SEDIMENTATION RATE 67 mm/hr (0-20)
--- NOTE | 2018-12-27 09:13 | RADIOLOGY REPORT ---
EXAM: LEFT FOOT COMPLETE HISTORY: PAIN, REDNESS AND SWELLING FOR TWO DAYS. NO KNOWN INJURY. GOUT HISTORY. TECHNIQUE: Three views of the left foot were obtained. Comparison: Three views of the left foot dated 11/12/17. Encounter: Initial. FINDINGS: There is mild diffuse osteopenia. No acute fracture nor dislocation. No new lytic or blastic bone lesion. Advanced osteoarthritic changes of the first MTP joint are again noted. Mild osteoarthritic changes scattered throughout the remainder of the foot. No new periarticular erosion. Fixation screw is again demonstrated within the distal aspect of the third metatarsal. The ossicles are again noted adjacent to the plantar lateral margin of the cuboid bone. There is a small plantar calcaneal spur present. Minor spurring at the Achilles tendon insertion site. Diffuse arterial calcification. Minor dorsal soft tissue swelling at the mid foot level. IMPRESSION: 1. NO ACUTE BONE NOR JOINT ABNORMALITY. 2. ADVANCED OSTEOARTHRITIC CHANGES OF THE FIRST MTP JOINT REDEMONSTRATED. MILD DEGENERATIVE CHANGES SCATTERED THROUGHOUT THE REMAINDER OF THE FOOT. NO PERIARTICULAR EROSION. 3. POST SURGICAL CHANGES IN THE DISTAL ASPECT OF THE THIRD METATARSAL. 4. CALCANEAL SPURRING. 5. MINOR FOCAL DORSAL SOFT TISSUE SWELLING AT THE MID FOOT LEVEL. JOB NUMBER: [id number] MTDD
== END 2018-12-24 13:56 | disposition home or self-care (01) ==
LOC: ER 12:22
DX: M10.072 Idiopathic gout, left ankle and foot (principal); J44.9 Chronic obstructive pulmonary disease, unspecified; I10 Essential (primary) hypertension; I25.2 Old myocardial infarction; Z87.891 Personal history of nicotine dependence
CPT/HCPCS: 82947; 85025; 85651; 99283; 99284

== ENCOUNTER 2019-01-10 11:46 | Emergency (ER) | payer MEDICARE ==
--- NOTE | 2019-01-10 12:08 | Emergency Department Record ---
History of Present Illness - General Chief complaint: Lower Extremity Pain Stated complaint: GOUT Time Seen by Provider: 01/10/19 11:50 Source: Patient, Family (daughter) Mode of Arrival: Ambulatory Limitations: No limitations - History of Present Illness Initial comments: Pt to ED with a two day flare of gout to his right great toe. Seen here earlier this month with the same. Treated with Prednisone due to currently takeing Plavix. Denies trauma or fever. Trying to watch his diet. Onset/Timin -: Days(s) Location: Left, Foot History of Same: Yes Radiation: Proximal, Distal Severity scale (1-10): 7 Quality: Aching Consistency: Constant Improves with: Nothing Worsens with: Nothing Associated Symptoms: Denies other symptoms - Related Data Previous Rx's Medication Instructions Recorded Acetaminophen [Tylenol 500Mg Tab] 1,000 mg PO Q8HR PRN #120 tablet 11/24/16 Albuterol Sulfate [Ventolin Hfa] 2 puff INH Q4H PRN #0 inhaler 11/24/16 Hydrocodone/Acetaminophen [[place] 0.5 - 1 tab PO TID PRN #7 tab 11/21/18 5mg/325mg] Hydrocodone/Acetaminophen [[place] 1 each PO Q6H PRN #8 tablet 11/25/18 5-325 Tablet] Prednisone [Prednisone 20Mg] 40 mg PO DAILY 5 Days #10 tab 01/10/19 Allergies Allergy/AdvReac Type Severity Reaction Status Date / Time morphine AdvReac Severe hallucinati Verified 01/10/19 11:57 ons Travel Screening - Travel/Exposure Within Last 30 Days Have you traveled within the last 30 days?: No Review of Systems Constitutional: Denies: Chills, Fever Eyes: Denies: Eye discharge ENT: Denies: Congestion Respiratory: Denies: Cough Cardiovascular: Denies: Arrhythmia, Chest pain Endocrine: Denies: Fatigue Gastrointestinal: Denies: Abdominal pain, Nausea, Vomiting Musculoskeletal: Reports: As per HPI Skin: Denies: Bruising, Rash Neurological: Denies: Headache Psychiatric: Denies: Anxiety Past Medical History - SOCIAL HISTORY Smoking Status: Former smoker Alcohol Use: None Drug Use: None - RESPIRATORY Hx Respiratory Disorders: Yes Hx COPD: Yes - CARDIOVASCULAR Hx Cardio Disorders: Yes Hx Cardiac Cath: Yes Hx Heart Attack: Yes (x 3-last one 2010March 2018) Hx Hypertension: Yes Hx Vascular Disease: Yes Hx Coronary Artery Bypass Graft: Yes Hx Coronary Stent: Yes Comment:: d/t breathing - NEURO Hx Neuro Disorders: No - GI Hx GI Disorders: Yes Hx Crohn's Disease: Yes Hx Reflux: Yes Hx of Polyps: Yes Comment:: hernia - Hx Genitourinary Disorders: Yes Hx Prostate Problems: Yes (hx of prostate cancer) Comment:: Gout - ENDOCRINE Hx Endocrine Disorders: No - MUSCULOSKELETAL Hx Musculoskeletal Disorders: Yes Hx Arthritis: Yes (all over) - PSYCH Hx Psych Problems: No - HEMATOLOGY/ONCOLOGY Hx Hematology/Oncology Disorders: Yes Hx Anemia: Yes Hx Cancer: Yes (prostate cancer) Hx Chemotherapy: No Hx Radiation Therapy: No Hx Blood Transfusions: Yes (>10 years ago) Hx Blood Transfusion Reaction: No Family Medical History Any Significant Family History?: Yes Hx Cancer: Brother/Sister Hx Heart Disease: Father Physical Exam - General General Appearance: Alert, Oriented x3, Cooperative, No acute distress - Head Head exam: Normal inspection - Eye Eye exam: Normal appearance - ENT ENT exam: Mucous membranes moist - Neck Neck exam: Normal inspection, Full ROM - Respiratory Respiratory exam: Normal lung sounds bilaterally. negative: Respiratory distress, Rhonchi, Wheezes - Cardiovascular Cardiovascular Exam: Regular rate, Normal rhythm - Extremities Extremities exam: Joint swelling (right gerat toe with local erythema and tenderness. No skin break, no weeping. Tender to palpate and move. ) - Neurological Neurological exam: Alert, Normal gait, Oriented X3 - Psychiatric Psychiatric exam: Normal affect, Normal mood - Skin Skin exam: Normal color Course Vital Signs 01/10/19 11:50 Temperature 98.3 F Pulse Rate 92 H Respiratory 20 Rate Blood Pressure 120/72 Pulse Ox 98 - Reevaluation(s) Reevaluation #1: 01/10/19 12:11 discussed taking steroid with food and not with alcohol. Will see family doctor to discuss gout treatment options. Disposition Disposition: Discharge Clinical Impression: Gout Qualifiers: Gout site: toe Encounter type: subsequent encounter Chronicity: acute Laterality: left Condition: (1) Good Instructions: Gout (ED) Additional Instructions: Take Prednisone as directed with food. See your doctor to discuss further treatment options. Prescriptions: Prednisone [Prednisone 20Mg] 40 mg PO DAILY 5 Days #10 tab Forms: Patient Portal Access Quality - Quality Measures Quality Measures: N/A - Blood Pressure Screening Does Patient Have Any of the Following: No Blood Pressure Classification: Pre-Hypertensive BP Reading Systolic Measurement: 120 Diastolic Measurement: 72 Screening for High Blood Pressure: < Pre-Hypertensive BP, F/U Documented > [G8950] Pre-Hypertensive Follow-up Interventions: Follow-up with rescreen every year.
== END 2019-01-10 12:18 | disposition home health service (06) ==
LOC: ER 11:46
DX: M10.072 Idiopathic gout, left ankle and foot (principal); I10 Essential (primary) hypertension; Z87.891 Personal history of nicotine dependence
CPT/HCPCS: 99282

== ENCOUNTER 2019-02-06 11:34 | Emergency (ER) | payer MEDICARE ==
--- NOTE | 2019-02-06 11:58 | Emergency Department Record ---
History of Present Illness - General Chief Complaint: Ankle/Foot Injury Stated Complaint: RT FOOT PAIN POSS GOUT Time Seen by Provider: 02/06/19 11:48 Source: Patient Mode of Arrival: Ambulatory Limitations: No limitations - History of Present Illness Initial Comments: The patient is here due to R foot pain for 3 days. The pain is at the 1st MTP joint. He has a long hx of gout but has had it mainly in the L foot. The patient denies any trauma or injury. MD Complaint: Other -: Days(s) Severity scale (1-10): 4 Associated Symptoms: Able to partially bear weight - Related Data Home Medications Medication Instructions Recorded Confirmed Last Taken Albuterol Sulfate 0.083% [Neb] 2.5 mg NEB 02/06/19 Unknown [Albuterol Sulfate] Allopurinol 02/06/19 Unknown Allopurinol 100 mg PO DAILY 02/06/19 02/06/19 Unknown Fluticasone Propionate [Flonase] 2 spray EACH NARES DAILY 02/06/19 02/06/19 Un known Losartan Potassium 50 mg PO DAILY 02/06/19 02/06/19 Unknown Prednisone [Prednisone 20Mg] 20 mg PO BID 02/06/19 Unknown Ranitidine HCl 150 mg PO BID 02/06/19 02/06/19 Unknown Ranolazine [Ranexa] 1,000 mg PO BID 02/06/19 02/06/19 Unknown Previous Rx's Medication Instructions Recorded Acetaminophen [Tylenol 500Mg Tab] 1,000 mg PO Q8HR PRN #120 tablet 11/24/16 Albuterol Sulfate [Ventolin Hfa] 2 puff INH Q4H PRN #0 inhaler 11/24/16 Hydrocodone/Acetaminophen [Pathfork 0.5 - 1 tab PO TID PRN #7 tab 11/21/18 5mg/325mg] Hydrocodone/Acetaminophen [Pathfork 1 each PO Q6H PRN #8 tablet 11/25/18 5-325 Tablet] Prednisone [Prednisone 20Mg] 40 mg PO DAILY #10 tab 02/06/19 Allergies Allergy/AdvReac Type Severity Reaction Status Date / Time morphine AdvReac Severe hallucinati Verified 01/10/19 11:57 ons Travel Screening - Travel/Exposure Within Last 30 Days Have you traveled within the last 30 days?: No - Travel/Exposure Within Last Year Have you traveled outside the [place] in the last year?: No - Additonal Travel Details Have you been exposed to anyone with a communicable illness?: No - Travel Symptoms Symptom Screening: None Review of Systems Constitutional: Denies: Chills, Fever Eyes: Denies: Eye discharge ENT: Denies: Congestion Respiratory: Denies: Cough, Dyspnea Past Medical History - SOCIAL HISTORY Smoking Status: Former smoker Alcohol Use: Occasional Drug Use: None - RESPIRATORY Hx Respiratory Disorders: Yes Hx COPD: Yes - CARDIOVASCULAR Hx Cardio Disorders: Yes Hx Cardiac Cath: Yes Hx Heart Attack: Yes (x 3-last one 2010March 2018) Hx Hypertension: Yes Hx Vascular Disease: Yes Hx Coronary Artery Bypass Graft: Yes Hx Coronary Stent: Yes Comment:: d/t breathing - NEURO Hx Neuro Disorders: No - GI Hx GI Disorders: Yes Hx Crohn's Disease: Yes Hx Reflux: Yes Hx of Polyps: Yes Comment:: hernia - Hx Genitourinary Disorders: Yes Hx Prostate Problems: Yes (hx of prostate cancer) Comment:: Gout - ENDOCRINE Hx Endocrine Disorders: No - MUSCULOSKELETAL Hx Musculoskeletal Disorders: Yes Hx Arthritis: Yes (all over) - PSYCH Hx Psych Problems: No - HEMATOLOGY/ONCOLOGY Hx Hematology/Oncology Disorders: Yes Hx Anemia: Yes Hx Cancer: Yes (prostate cancer) Hx Chemotherapy: No Hx Radiation Therapy: No Hx Blood Transfusions: Yes (>10 years ago) Hx Blood Transfusion Reaction: No Family Medical History Any Significant Family History?: No Hx Cancer: Brother/Sister Hx Heart Disease: Father Physical Exam - General General Appearance: Alert, Oriented x3, Cooperative, No acute distress - Head Head exam: Atraumatic, Normocephalic, Normal inspection - Eye Eye exam: Normal appearance, PERRL - Neck Neck exam: Normal inspection, Full ROM. negative: Tenderness - Respiratory Respiratory exam: Normal lung sounds bilaterally. negative: Respiratory distress - Cardiovascular Cardiovascular Exam: Regular rate, Normal rhythm, Normal heart sounds - GI/Abdominal GI/Abdominal exam: Soft, Normal bowel sounds. negative: Tenderness - Extremities Extremities exam: Normal capillary refill, Tenderness. negative: Normal inspection (There is erythema and tenderness to the R 1st MTP joint. There is pain with ROM.), Full ROM - Neurological Neurological exam: Alert. negative: Motor sensory deficit Course Vital Signs 02/06/19 11:38 Temperature 97.7 F Pulse Rate 87 Respiratory 18 Rate Blood Pressure 145/75 Pulse Ox 93 L - Reevaluation(s) Reevaluation #1: I did discuss the lab results with the patient and the fact I do believe the pain in his R foot is due to gout. He is to drink plenty of water and follow the gout diet. He is to take the Pathfork today and continue the Prednisone tomorrow and is to see his PCP in 1-2 days for recheck. 02/06/19 13:01 Medical Decision Making - Lab Data Result diagrams: 02/06/19 12:10 02/06/19 12:10 Disposition Disposition: Discharge Clinical Impression: Gout Qualifiers: Gout site: unspecified site Gout etiology: unspecified cause Chronicity: chronic Presence of tophus: without tophus Qualified Code(s): M1A.9XX0 - Chronic gout, unspecified, without tophus (tophi) Disposition: Home, Self-Care Condition: (2) Stable Instructions: Gout (ED) Additional Instructions: The patient is to drink plenty of fluids and follow the gout diet. He is to take the Pathfork for pain at home and to continue the Prednisone. The patient is to see his PCP tomorrow for recheck and to return to the ER for any worsening symptoms. Prescriptions: Prednisone [Prednisone 20Mg] 40 mg PO DAILY #10 tab Forms: Patient Portal Access Time of Disposition: 13:04 Quality - Quality Measures Quality Measures: N/A - Blood Pressure Screening View Details: Yes Does Patient Have Any of the Following: No Blood Pressure Classification: Hypertensive Reading Systolic Measurement: 145 Diastolic Measurement: 75 Screening for High Blood Pressure: < First Hypertensive BP, F/U Documented > [G8950] First Hypertensive Follow-up Interventions: Referral to alternative/primary care provider.
[2019-02-06 12:19] LABS: ABSOLUTE NEUTROPHIL COUNT 3.19; BASO % 0.4 % (0-6); EOS % 1.9 % (0-6); GRAN % 66.2 % (47-80); HEMATOCRIT 34.9 % (42.0-52.0); HEMOGLOBIN 10.9 gm/dl (14.0-18.0); LYMPH % 19.9 % (16-45); MEAN CELL VOLUME 101.7 fl (81-97); MEAN CORPUSCULAR HEMOGLOBIN 31.7 pg (27-33); MEAN CORPUSCULAR HGB CONC 31.2 g/dl (32-36); MEAN PLATELET VOLUME 9.3 fl (7.4-10.4); MONO % 11.6 % (0-9); PLATELET COUNT 252 K/uL (130-400); RED BLOOD COUNT 3.43 M/uL (4.40-5.70); WHITE BLOOD COUNT W/O DIFF 4.8 K/uL (4.2-12.2)
[2019-02-06 12:32] LABS: CREATININE 1.3 mg/dL (0.7-1.2)
[2019-02-06 12:37] LABS: C-REACTIVE PROTEIN 0.23 mg/dL (<0.5)
[2019-02-06] MEDS ORDERED: PREDNISONE 20 MG TAB PO ONE (12:58)
[2019-02-06] MEDS ORDERED: HYDROCODONE/APAP 5/325MG TABLET PO ONE (12:59)
== END 2019-02-06 13:18 | disposition home or self-care (01) ==
LOC: ER 11:34
DX: M1A.0710 Idiopathic chronic gout, right ankle and foot, without tophus (tophi) (principal); I10 Essential (primary) hypertension; I25.2 Old myocardial infarction; Z87.891 Personal history of nicotine dependence
CPT/HCPCS: 80048; 84550; 85025; 86140; 99283; J7512

== ENCOUNTER 2019-04-17 13:46 | Emergency (ER) | payer MEDICARE ==
--- NOTE | 2019-04-17 14:22 | Emergency Department Record ---
History of Present Illness - General Chief Complaint: Fall Injury Stated Complaint: TRIPPED AND FELL/HEAD LAC/BOTH ARM ABRASSIONS Time Seen by Provider: 04/17/19 13:53 Source: Patient, RN notes reviewed Mode of Arrival: Ambulatory - History of Present Illness Initial Comments: fell working on his trailer and has head lacerations and he ambulated to the ED with skin tears on the left forearm. No LOC and moving all extremities. 2 cm laceration of the left scalp area Complaint: Fall Onset/Timin -: Minutes(s) Fall From: Other When Fall Occurred: Just prior to arrival Fall Witnessed: No Place Fall Occurred: Home Loss of Consciousness: None Prolonged Down Time?: No Symptoms Prior to Fall: None Context: Tripped/slipped Associated Symptoms: Denies - Related Data Previous Rx's Medication Instructions Recorded Acetaminophen [Tylenol 500Mg Tab] 1,000 mg PO Q8HR PRN #120 tablet 11/24/16 Albuterol Sulfate [Ventolin Hfa] 2 puff INH Q4H PRN #0 inhaler 11/24/16 Hydrocodone/Acetaminophen [Gamaliel 0.5 - 1 tab PO TID PRN #7 tab 11/21/18 5mg/325mg] Hydrocodone/Acetaminophen [Gamaliel 1 each PO Q6H PRN #8 tablet 11/25/18 5-325 Tablet] Prednisone [Prednisone 20Mg] 40 mg PO DAILY #10 tab 02/06/19 Allergies Allergy/AdvReac Type Severity Reaction Status Date / Time morphine AdvReac Severe hallucinati Verified 01/10/19 11:57 ons Travel Screening - Travel/Exposure Within Last 30 Days Have you traveled within the last 30 days?: No Review of Systems Reviewed: No additional complaints except as noted below Constitutional: Reports: As per HPI. Denies: Chills, Fever, Malaise, Night sweats, Weakness, Weight change Eyes: Reports: As per HPI. Denies: Eye discharge, Eye pain, Photophobia, Vision change ENT: Reports: As per HPI. Denies: Congestion, Dental pain, Ear pain, Epistaxis, Hearing loss, Throat pain Respiratory: Reports: As per HPI. Denies: Cough, Dyspnea, Hemoptysis, Stridor, Wheezes Cardiovascular: Reports: As per HPI. Denies: Arrhythmia, Chest pain, Dyspnea on exertion, Edema, Murmurs, Orthopnea, Palpitations, Paroxysmal nocturnal dyspnea, Rheumatic Fever, Syncope Endocrine: Reports: As per HPI. Denies: Fatigue, Heat or cold intolerance, Polydipsia, Polyuria Gastrointestinal: Reports: As per HPI. Denies: Abdominal pain, Constipation, Diarrhea, Hematemesis, Hematochezia, Melena, Nausea, Vomiting Genitourinary: Reports: As per HPI. Denies: Dysuria, Frequency, Hematuria, Incontinence, Retention, Testicular pain, Testicular mass, Urgency Musculoskeletal: Reports: As per HPI. Denies: Arthralgia, Back pain, Gout, Joint swelling, Myalgia, Neck pain Skin: Reports: As per HPI, Other (head laceration and left forearm skin tears). Denies: Bruising, Change in color, Change in hair/nails, Lesions, Pruritus, Rash Neurological: Reports: As per HPI. Denies: Abnormal gait, Confusion, Headache, Numbness, Paresthesias, Seizure, Tingling, Tremors, Vertigo, Weakness Psychiatric: Reports: As per HPI. Denies: Anxiety, Auditory hallucinations, Depression, Homicidal thoughts, Suicidal thoughts, Visual hallucinations Hematological/Lymphatic: Reports: As per HPI. Denies: Anemia, Blood Clots, Easy bleeding, Easy bruising, Swollen glands Past Medical History - SOCIAL HISTORY Smoking Status: Former smoker - RESPIRATORY Hx Respiratory Disorders: Yes Hx COPD: Yes - CARDIOVASCULAR Hx Cardio Disorders: Yes Hx Cardiac Cath: Yes Hx Heart Attack: Yes (x 3-last one 2010March 2018) Hx Hypertension: Yes Hx Vascular Disease: Yes Hx Coronary Artery Bypass Graft: Yes Hx Coronary Stent: Yes Comment:: d/t breathing - NEURO Hx Neuro Disorders: No - GI Hx GI Disorders: Yes Hx Crohn's Disease: Yes Hx Reflux: Yes Hx of Polyps: Yes Comment:: hernia - Hx Genitourinary Disorders: Yes Hx Prostate Problems: Yes (hx of prostate cancer) Comment:: Gout - ENDOCRINE Hx Endocrine Disorders: No - MUSCULOSKELETAL Hx Musculoskeletal Disorders: Yes Hx Arthritis: Yes (all over) - PSYCH Hx Psych Problems: No - HEMATOLOGY/ONCOLOGY Hx Hematology/Oncology Disorders: Yes Hx Anemia: Yes Hx Cancer: Yes (prostate cancer) Hx Chemotherapy: No Hx Radiation Therapy: No Hx Blood Transfusions: Yes (>10 years ago) Hx Blood Transfusion Reaction: No Family Medical History Any Significant Family History?: Yes Hx Cancer: Brother/Sister Hx Heart Disease: Father Physical Exam - General General Appearance: Alert, Oriented x3, Cooperative, No acute distress - Head Head exam: Normal inspection - Eye Eye exam: Normal appearance, PERRL Pupils: Normal accommodation - ENT ENT exam: Normal exam, Mucous membranes moist, Normal external ear exam, Normal orophraynx, TM's normal bilaterally Ear exam: Normal external inspection. negative: External canal tenderness Nasal Exam: Normal inspection. negative: Discharge, Sinus tenderness Mouth exam: Normal external inspection, Tongue normal Teeth exam: Normal inspection. negative: Dental caries Throat exam: Normal inspection. negative: Tonsillar erythema, Tonsillar exudate - Neck Neck exam: Normal inspection, Full ROM. negative: Tenderness - Respiratory Respiratory exam: Normal lung sounds bilaterally. negative: Respiratory distress - Cardiovascular Cardiovascular Exam: Regular rate, Normal rhythm, Normal heart sounds - GI/Abdominal GI/Abdominal exam: Soft, Normal bowel sounds. negative: Tenderness - Rectal Rectal exam: Deferred - exam: Deferred - Extremities Extremities exam: Normal inspection, Full ROM, Normal capillary refill. negative: Tenderness - Back Back exam: Reports: Normal inspection, Full ROM. Denies: Muscle spasm, Rash noted, Tenderness - Neurological Neurological exam: Alert, Normal gait, Oriented X3, Reflexes normal - Psychiatric Psychiatric exam: Normal affect, Normal mood - Skin Skin exam: Dry, Intact, Normal color, Warm Course Vital Signs 04/17/19 14:01 Temperature 98.8 F Pulse Rate [ 63 Pulse Ox Probe] Respiratory 18 Rate Blood Pressure 162/68 [Left Arm] Pulse Ox 97 - Reevaluation(s) Reevaluation #1: laceration repair with 5.0 ethilon times two sutures after 1% lidocaine and ckeaned the wounds with Shurclens 04/17/19 14:47 Reevaluation #2: multiple skin tears on both arms and no sutures required for them. They were cleaned and neosporin applied. 04/17/19 14:51 Medical Decision Making - Data Complexity MDM Data: Labs Ordered and/or Reviewed, X-Ray Ordered and/or Reviewed (CT neck negative and CT head neg) - Lab Data Result diagrams: 04/17/19 14:35 04/17/19 14:35 Disposition Clinical Impression: Contusion of head Qualifiers: Encounter type: initial encounter Contusion of head detail: scalp Qualified Code(s): S00.03XA - Contusion of scalp, initial encounter Laceration of head Qualifiers: Encounter type: initial encounter Location of open wound of head: scalp Foreign body presence: without foreign body Qualified Code(s): S01.01XA - Laceration without foreign body of scalp, initial encounter Skin tear of forearm without complication Qualifiers: Encounter type: initial encounter Laterality: unspecified laterality Qualified Code(s): S51.819A - Laceration without foreign body of unspecified forearm, initial encounter Disposition: Home, Self-Care Condition: (1) Good Instructions: Fall Prevention for Older Adults (ED), Laceration (ED) Additional Instructions: sutures out in 8 days wash wounds daily neosporin ointment once a day Forms: Patient Portal Access Time of Disposition: 15:09 Quality - Quality Measures Quality Measures: N/A, Blunt Head Trauma (>2yr) - Blunt Head Trauma - Adult Quality Measure: Measure #415: Utilization of CT for Minor Blunt Head Trauma ICD10 Codes Entered: Yes Was CT ordered: Yes Does Patient Have Any of the Following: Taking Antiplatelet Med [place] Score: Please complete [place] Coma Scale above Utilization of CT for Minor Blunt Head Trauma: < CT Done, Appropriate Indication > [G9529] Additional Inclusion Criteria: Within 24hrs (AND) GCS of 15 (AND) CT ordered. [G9530] Indications For CT: Taking Anticoagulant Medication - Blood Pressure Screening Does Patient Have Any of the Following: No, Active Dx of HTN Blood Pressure Classification: Hypertensive Reading Systolic Measurement: 162 Diastolic Measurement: 68 Screening for High Blood Pressure: Patient Exclusion, Hx of HTN [G9744]
[2019-04-17 15:01] LABS: ABSOLUTE NEUTROPHIL COUNT 3.73; BASO % 0.2 % (0-6); HEMATOCRIT 33.4 % (42.0-52.0); HEMOGLOBIN 10.6 gm/dl (14.0-18.0); LYMPH % 19.4 % (16-45); MEAN CELL VOLUME 103.1 fl (81-97); MEAN CORPUSCULAR HEMOGLOBIN 32.7 pg (27-33); MEAN CORPUSCULAR HGB CONC 31.7 g/dl (32-36); MEAN PLATELET VOLUME 10.7 fl (7.4-10.4); MONO % 9.4 % (0-9); PLATELET COUNT 190 K/uL (130-400); RED BLOOD COUNT 3.24 M/uL (4.40-5.70); RED CELL DISTRIBUTION WIDTH 14.5 % (11.5-14.5); WHITE BLOOD COUNT W/O DIFF 5.4 K/uL (4.2-12.2)
[2019-04-17 15:13] LABS: CREATININE 1.3 mg/dL (0.7-1.2)
--- NOTE | 2019-04-18 09:15 | CT SCAN REPORT ---
EXAM: CT OF THE BRAIN WITHOUT CONTRAST HISTORY: FALL WITH TRAUMA TO LEFT SIDE OF HEAD. LACERATION. TECHNIQUE: Routine noncontrast CT of the brain was obtained. Comparison: No prior imaging of the brain available for comparison. Same day CT of the cervical spine. FINDINGS: Mild to moderate dilatation of the subarachnoid spaces is present consistent with generalized atrophy. The ventricles are not enlarged. Benign bilateral basal ganglia calcification is present. Minor periventricular and subcortical white matter lucencies are noted within the frontal lobes. These are nonspecific, but likely areas of chronic microvascular ischemia. No other area of abnormally increased or decreased attenuation is noted throughout the brain substance. No abnormal extraaxial fluid collection is seen. No acute skull fracture identified. There is soft tissue swelling in the left frontal and temporal regions. Vascular calcifications are scattered within the scalp. The visualized paranasal sinuses and mastoid air cells are clear. Post cataract surgery changes are noted bilaterally. The orbits are otherwise unremarkable. IMPRESSION: 1. NO CT EVIDENCE OF ACUTE INTRACRANIAL ABNORMALITY NOR SKULL FRACTURE. 2. GENERALIZED ATROPHY. 3. MINOR WHITE MASS LUCENCIES IN EACH CEREBRAL HEMISPHERE ARE NONSPECIFIC, BUT LIKELY AREAS OF CHRONIC MICROVASCULAR ISCHEMIA. 4. MILD SOFT TISSUE SWELLING IN THE LEFT FRONTAL AND TEMPORAL REGIONS. JOB NUMBER: [id number] [facility]
--- NOTE | 2019-04-18 09:29 | CT SCAN REPORT ---
EXAM: CT OF THE CERVICAL SPINE WITHOUT CONTRAST HISTORY: FALL WITH TRAUMA TO LEFT SIDE OF HEAD. TECHNIQUE: Thin collimation helical CT examination of the cervical spine was performed without intravenous contrast in the axial plane. Coronal and sagittal reformatted images are generated and reviewed. Comparison: No prior imaging of the cervical spine available for comparison. FINDINGS: There is normal bone mineralization. There is straightening of the normal cervical lordosis. There is fusion of the C3 and C4 vertebra as well as the C5 and C6 vertebra, likely developmental. There is minimal anterolisthesis of C7 on T1. The vertebral bodies are otherwise normal in alignment and height. No acute fracture, destructive bone lesion, or prevertebral soft tissue swelling. There are moderate hypertrophic degenerative changes of the atlantodental joint. Degenerative disk/degenerative end plate changes are noted at the C2-C3, C4- C5, and C6-C7 levels, mild to moderate in degree. Posterior disk bulging and end plate spurring at these levels cause ventral sac flattening. There is likely mild central canal stenosis at the C4-C5 level. No other central canal stenosis is seen. Multiple bilateral neural foraminal narrowing is present due to uncovertebral joint and facet joint spurring. This is most pronounced at the C4-C5 level on the left where it is severe. It is moderate in degree at the C2-C3 level on the right and the C7-T1 level on the left. There is mild to moderate atherosclerotic calcification of the carotid bifurcations. Biapical pleural and parenchymal lung scarring. No cervical mass nor adenopathy. IMPRESSION: 1. NO ACUTE FRACTURE, SUSPICIOUS SUBLUXATION, OR PREVERTEBRAL SOFT TISSUE SWELLING. 2. 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 3. MULTILEVEL DEGENERATIVE CHANGES, DETAILED ABOVE. 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 [facility]: [id number] [facility]
== END 2019-04-17 15:58 | disposition home or self-care (01) ==
LOC: ER 13:46
DX: S00.93XA Contusion of unspecified part of head, initial encounter (principal); S41.102A Unspecified open wound of left upper arm, initial encounter; S41.101A Unspecified open wound of right upper arm, initial encounter; W18.30XA Fall on same level, unspecified, initial encounter; Y92.029 Unspecified place in mobile home as the place of occurrence of the external cause; S01.01XA Laceration without foreign body of scalp, initial encounter
CPT/HCPCS: 12001; 70450; 72125; 80048; 85025; 99284

== ENCOUNTER 2019-05-15 08:36 | Emergency (ER) | payer MEDICARE ==
--- NOTE | 2019-05-15 09:14 | Emergency Department Record ---
History of Present Illness - General Chief complaint: Extremity Problem Stated complaint: GOUT Time Seen by Provider: 05/15/19 08:46 Source: Patient Mode of Arrival: Ambulatory Limitations: No limitations - History of Present Illness Initial comments: pt is having another flare up of gout. he is no longer on plavix or prednisone. both mtpjs effected MD Complaint: Extremity pain, Joint pain, Joint swelling Onset/Timin -: Days(s) Location: Bilateral, Ankle, Foot History of Same: Yes Radiation: Proximal Severity scale (1-10): 7 Quality: Aching Consistency: Constant, Intermittent Improves with: Nothing Worsens with: Walking, Weight bearing Associated Symptoms: Denies other symptoms - Related Data Previous Rx's Medication Instructions Recorded Acetaminophen [Tylenol 500Mg Tab] 1,000 mg PO Q8HR PRN #120 tablet 11/24/16 Albuterol Sulfate [Ventolin Hfa] 2 puff INH Q4H PRN #0 inhaler 11/24/16 Hydrocodone/Acetaminophen [[place] 1 each PO Q6HR #7 tablet 05/15/19 5-325 Tablet] Indomethacin [Indocin] 50 mg PO TID #14 cap 05/15/19 Allergies Allergy/AdvReac Type Severity Reaction Status Date / Time morphine AdvReac Severe hallucinati Verified 05/15/19 08:48 ons Travel Screening - Travel/Exposure Within Last 30 Days Have you traveled within the last 30 days?: No - Travel/Exposure Within Last Year Have you traveled outside the [place] in the last year?: No - Additonal Travel Details Have you been exposed to anyone with a communicable illness?: No - Travel Symptoms Symptom Screening: None Review of Systems Reviewed: No additional complaints except as noted below Constitutional: Reports: As per HPI. Denies: Chills, Fever, Malaise, Night sweats, Weakness, Weight change Eyes: Reports: As per HPI. Denies: Eye discharge, Eye pain, Photophobia, Vision change ENT: Reports: As per HPI. Denies: Congestion, Dental pain, Ear pain, Epistaxis, Hearing loss, Throat pain Respiratory: Reports: As per HPI. Denies: Cough, Dyspnea, Hemoptysis, Stridor, Wheezes Cardiovascular: Reports: As per HPI. Denies: Arrhythmia, Chest pain, Dyspnea on exertion, Edema, Murmurs, Orthopnea, Palpitations, Paroxysmal nocturnal dyspnea, Rheumatic Fever, Syncope Endocrine: Reports: As per HPI. Denies: Fatigue, Heat or cold intolerance, Polydipsia, Polyuria Gastrointestinal: Reports: As per HPI. Denies: Abdominal pain, Constipation, Diarrhea, Hematemesis, Hematochezia, Melena, Nausea, Vomiting Genitourinary: Reports: As per HPI. Denies: Dysuria, Frequency, Hematuria, Incontinence, Retention, Testicular pain, Testicular mass, Urgency Musculoskeletal: Reports: As per HPI. Denies: Arthralgia, Back pain, Gout, Ania int swelling, Myalgia, Neck pain Skin: Reports: As per HPI. Denies: Bruising, Change in color, Change in hair/nails, Lesions, Pruritus, Rash Neurological: Reports: As per HPI. Denies: Abnormal gait, Confusion, Headache, Numbness, Paresthesias, Seizure, Tingling, Tremors, Vertigo, Weakness Psychiatric: Reports: As per HPI. Denies: Anxiety, Auditory hallucinations, Depression, Homicidal thoughts, Suicidal thoughts, Visual hallucinations Hematological/Lymphatic: Reports: As per HPI. 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 - NEURO Hx Neuro Disorders: No - GI Hx GI Disorders: Yes Hx Crohn's Disease: Yes Hx Reflux: Yes Hx of Polyps: Yes Comment:: hernia - Hx Genitourinary Disorders: Yes Hx Prostate Problems: Yes (hx of prostate cancer) Comment:: Gout - ENDOCRINE Hx Endocrine Disorders: No - MUSCULOSKELETAL Hx Musculoskeletal Disorders: Yes Hx Arthritis: Yes (all over) Hx Gout: Yes - PSYCH Hx Psych Problems: No - HEMATOLOGY/ONCOLOGY Hx Hematology/Oncology Disorders: Yes Hx Anemia: Yes Hx Cancer: Yes (prostate cancer) Hx Chemotherapy: No Hx Radiation Therapy: No Hx Blood Transfusions: Yes (>10 years ago) Hx Blood Transfusion Reaction: No Family Medical History Any Significant Family History?: Yes Hx Cancer: Brother/Sister Hx Heart Disease: Father Physical Exam - General General Appearance: Alert, Oriented x3, Cooperative - Head Head exam: Normal inspection - Eye Eye exam: Normal appearance, PERRL, EOMI Pupils: Normal accommodation - ENT ENT exam: Normal exam, Mucous membranes moist, Normal external ear exam, Normal orophraynx Ear exam: Normal external inspection. negative: External canal tenderness Nasal Exam: Normal inspection. negative: Discharge, Sinus tenderness Mouth exam: Normal external inspection, Tongue normal Teeth exam: Normal inspection. negative: Dental caries Throat exam: Normal inspection. negative: Tonsillar erythema, Tonsillar exudate - Neck Neck exam: Normal inspection, Full ROM. negative: Tenderness - Respiratory Respiratory exam: Normal lung sounds bilaterally. negative: Respiratory distress - Cardiovascular Cardiovascular Exam: Regular rate, Normal rhythm, Normal heart sounds - GI/Abdominal GI/Abdominal exam: Soft, Normal bowel sounds. negative: Tenderness - Rectal Rectal exam: Deferred - exam: Deferred - Extremities Extremities exam: Normal inspection, Full ROM, Normal capillary refill, Tenderness (mtpj bilaterally w swelling and erythema) - Back Back exam: Reports: Normal inspection, Full ROM. Denies: Muscle spasm, Rash noted, Tenderness - Neurological Neurological exam: Alert, CN II-XII intact, Normal gait, Oriented X3 - Psychiatric Psychiatric exam: Normal affect, Normal mood - Skin Skin exam: Dry, Intact, Normal color, Warm Course Vital Signs 05/15/19 08:51 Temperature 98.0 F Pulse Rate [ 85 Pulse Ox Probe] Respiratory 20 Rate Blood Pressure 175/91 [Right] Pulse Ox 97 Medical Decision Making - Lab Data Result diagrams: 05/15/19 09:10 05/15/19 09:10 Disposition Disposition: Discharge Clinical Impression: Gout Qualifiers: Gout site: multiple sites Gout etiology: idiopathic Chronicity: acute Qualified Code(s): 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 return sooner if worse Prescriptions: Hydrocodone/Acetaminophen [[place] 5-325 Tablet] 1 each PO Q6HR #7 tablet Indomethacin [Indocin] 50 mg PO TID #14 cap Forms: Patient Portal Access Quality - Quality Measures Quality Measures: N/A - Blood Pressure Screening Does Patient Have Any of the Following: Active Dx of HTN Blood Pressure Classification: Hypertensive Reading Systolic Measurement: 175 Diastolic Measurement: 91 Screening for High Blood Pressure: Patient Exclusion, Hx of HTN [G9744]
[2019-05-15 09:23] LABS: ABSOLUTE NEUTROPHIL COUNT 3.91; BASO % 0.2 % (0-6); EOS % 1.8 % (0-6); HEMATOCRIT 34.9 % (42.0-52.0); HEMOGLOBIN 11.1 gm/dl (14.0-18.0); LYMPH % 17.4 % (16-45); MEAN CELL VOLUME 102.9 fl (81-97); MEAN CORPUSCULAR HEMOGLOBIN 32.7 pg (27-33); MEAN CORPUSCULAR HGB CONC 31.8 g/dl (32-36); MEAN PLATELET VOLUME 9.9 fl (7.4-10.4); MONO % 10.6 % (0-9); PLATELET COUNT 185 K/uL (130-400); RED BLOOD COUNT 3.39 M/uL (4.40-5.70); RED CELL DISTRIBUTION WIDTH 15.3 % (11.5-14.5); WHITE BLOOD COUNT W/O DIFF 5.6 K/uL (4.2-12.2)
[2019-05-15 09:35] LABS: BLOOD UREA NITROGEN 12 mg/dL (8-23); CREATININE 1.1 mg/dL (0.7-1.2); EST GLOMERULAR FILTRATION RATE > 60 mL/min
[2019-05-15 09:38] LABS: GLUCOSE,RANDOM 140 mg/dL (74-109)
== END 2019-05-15 09:53 | disposition home or self-care (01) ==
LOC: ER 08:36
DX: M10.072 Idiopathic gout, left ankle and foot (principal); M10.071 Idiopathic gout, right ankle and foot; I10 Essential (primary) hypertension; I25.2 Old myocardial infarction; Z87.891 Personal history of nicotine dependence
CPT/HCPCS: 80048; 85025; 99283

== ENCOUNTER 2019-06-26 13:25 | Emergency (ER) | payer MEDICARE ==
[2019-06-26] MEDS ORDERED: PREDNISONE 20 MG TAB PO ONE (13:45)
--- NOTE | 2019-06-26 13:59 | Emergency Department Record ---
History of Present Illness - General Chief complaint: Lower Extremity Pain Stated complaint: LT FOOT BIG TOE GOUT Time Seen by Provider: 06/26/19 13:38 Source: Patient Mode of Arrival: Ambulatory Limitations: No limitations - History of Present Illness Initial comments: The patient is here due to L foot pain over the 1st MTP joint for 2 days. He has a long hx of Gout and this feels like another flare up. He is supposed to be taking Allopurinol but is not sure if he is taking it. There has been no fever, chills, or vomiting. MD Complaint: Extremity pain Onset/Timin -: Days(s) Location: Left, Foot Radiation: None Severity scale (1-10): 7 Quality: Sharp Consistency: Constant Improves with: Nothing Worsens with: Nothing Associated Symptoms: Denies other symptoms - Related Data Home Medications Medication Instructions Recorded Confirmed Last Taken Allopurinol 100 mg PO DAILY 06/26/19 06/26/19 Unknown Clopidogrel Bisulfate [Clopidogrel] 75 mg PO DAILY 06/26/19 06/26/19 Unknown Colchicine 0.6 mg PO DAILY 06/26/19 06/26/19 Unknown Roflumilast [Daliresp] 500 mcg PO DAILY 06/26/19 06/26/19 Unknown Previous Rx's Medication Instructions Recorded Acetaminophen [Tylenol 500Mg Tab] 1,000 mg PO Q8HR PRN #120 tablet 11/24/16 Hydrocodone/Acetaminophen [[place] 1 each PO Q6HR #7 tablet 05/15/19 5-325 Tablet] Prednisone [Prednisone 20Mg] 40 mg PO DAILY #10 tab 06/26/19 Allergies Allergy/AdvReac Type Severity Reaction Status Date / Time morphine AdvReac Severe hallucinati Verified 06/26/19 13:34 ons Travel Screening - Travel/Exposure Within Last 30 Days Have you traveled within the last 30 days?: No Review of Systems Constitutional: Denies: Chills, Fever Eyes: Denies: Eye discharge ENT: Denies: Congestion Respiratory: Denies: Cough, Dyspnea Past Medical History - SOCIAL HISTORY Smoking Status: Former smoker Alcohol Use: None Drug Use: None - RESPIRATORY Hx Respiratory Disorders: Yes Hx COPD: Yes - CARDIOVASCULAR Hx Cardio Disorders: Yes Hx Cardiac Cath: Yes Hx Heart Attack: Yes (x 4-last one 2018) Hx Hypertension: Yes Hx Vascular Disease: Yes Hx Coronary Artery Bypass Graft: Yes Hx Coronary Stent: Yes Comment:: d/t breathing, 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 - NEURO Hx Neuro Disorders: No - GI Hx GI Disorders: Yes Hx Crohn's Disease: Yes Hx Reflux: Yes Hx of Polyps: Yes Comment:: hernia - Hx Genitourinary Disorders: Yes Hx Prostate Problems: Yes (hx of prostate cancer) Comment:: Gout - ENDOCRINE Hx Endocrine Disorders: No - MUSCULOSKELETAL Hx Musculoskeletal Disorders: Yes Hx Arthritis: Yes (all over) Hx Gout: Yes - PSYCH Hx Psych Problems: No - HEMATOLOGY/ONCOLOGY Hx Hematology/Oncology Disorders: Yes Hx Anemia: Yes Hx Cancer: Yes (prostate cancer) Hx Chemotherapy: No Hx Radiation Therapy: No Hx Blood Transfusions: Yes (>10 years ago) Hx Blood Transfusion Reaction: No Family Medical History Any Significant Family History?: Yes Hx Cancer: Brother/Sister Hx Heart Disease: Father Physical Exam - General General Appearance: Alert, Oriented x3, Cooperative, No acute distress - Head Head exam: Atraumatic, Normocephalic - Eye Eye exam: Normal appearance, PERRL - Neck Neck exam: Normal inspection - Respiratory Respiratory exam: Normal lung sounds bilaterally. negative: Respiratory distress - Cardiovascular Cardiovascular Exam: Regular rate, Normal rhythm, Normal heart sounds - Extremities Extremities exam: Tenderness. negative: Normal inspection (There is erythema and mild tenderness to the L 1st MTP joint. ), Full ROM (There is decreased ROM due to pain.) - Neurological Neurological exam: Alert, Oriented X3. negative: Altered, Motor sensory deficit - Psychiatric Psychiatric exam: negative: Anxious Course Vital Signs 06/26/19 13:30 Pulse Rate 65 Respiratory 18 Rate Blood Pressure 138/52 Pulse Ox 95 - Reevaluation(s) Reevaluation #1: I did discuss the fact the patient has had multiple visits this year here for Gout. He is to continue the Prednisone at home and to see his PCP about restarting the Allopurinol and increasing the dose. 06/26/19 13:57 Disposition Disposition: Discharge Clinical Impression: Gout Qualifiers: Gout site: unspecified site Gout etiology: unspecified cause Chronicity: acute Qualified Code(s): M10.9 - Gout, unspecified Disposition: Home, Self-Care Condition: (2) Stable Instructions: Low Purine Diet (ED), Gout (ED) Additional Instructions: Please drink plenty of fluids and please continue the Prednisone tomorrow. Please see your family doctor regarding the Allopurinol dosing. Return to the ER for any worsening symptoms. Prescriptions: Prednisone [Prednisone 20Mg] 40 mg PO DAILY #10 tab Forms: Patient Portal Access Time of Disposition: 13:59 Quality - Quality Measures Quality Measures: N/A - Blood Pressure Screening View Details: Yes Does Patient Have Any of the Following: No Blood Pressure Classification: Pre-Hypertensive BP Reading Systolic Measurement: 138 Diastolic Measurement: 52 Screening for High Blood Pressure: < Pre-Hypertensive BP, F/U Documented > [G8950] Pre-Hypertensive Follow-up Interventions: Referral to alternative/primary care provider.
== END 2019-06-26 14:13 | disposition home or self-care (01) ==
LOC: ER 13:25
DX: M10.072 Idiopathic gout, left ankle and foot (principal); I10 Essential (primary) hypertension; Z87.891 Personal history of nicotine dependence
CPT/HCPCS: 99283 ×2; J7512